=== PATIENT | female | born 1955 | race Caucasian/White ===

== ENCOUNTER 2019-11-23 10:21 | Outpatient (CLI) | payer MEDICARE, SELFPAY ==
--- NOTE | ~2019-11-23 | XR_ITS ---
XR chest 2V DATE: 11/23/2019 10:39 INDICATION: Cough TECHNIQUE: PA and lateral views COMPARISON: 05/16/2019 CT chest high resolution portable AP chest FINDINGS: Calcified bilateral breast implants are again noted. Normal heart size. Normal heart size. Aortic calcification and mild unfolding. There is interval new mild prominence of the pulmonary vasculature and fissures, suggesting mild demetrice estive change. No pulmonary consolidation, pleural effusion or pneumothorax. Surgical clips, right upper quadrant, consistent with cholecystectomy. Osteopenia. Degenerative spurring of the thoracic and lumbar spine. IMPRESSION: Mild congestive changes since 02/06/2019 Reviewed, dictated and finalized at location B. [employer] FORMER
== END 2019-11-23 10:22 | disposition home or self-care (01) ==
LOC: ANHIMG 10:23
PROVIDERS: PCP Family Medicine; Visit Provider Physician Assistant
DX: R05 Cough (principal)
CPT/HCPCS: 71046

== ENCOUNTER 2019-12-15 14:48 | Emergency (ER) | payer MEDICARE, SELFPAY ==
[2019-12-15 15:02] VITALS: BP 134/73; PULSE 56; RESP 19; TEMP 36.9; O2SAT 100
--- NOTE | 2019-12-15 15:16 | ED.GENADULT ---
HPI - General Adult General Chief complaint: Upper Respiratory Infection Stated complaint: runny nose/mucus in throat/pain in back Time Seen by Provider: 12/15/19 15:16 Source: patient and RN notes reviewed Mode of arrival: ambulatory Limitations: no limitations History of Present Illness HPI narrative: This is a 64 years old female presents to the office for an evaluation of sinus congestion for three weeks. Symptoms are worsening for the last week. Symptoms include sore throat, ear fullness, and cough. She saw her doctor about 3 weeks ago for cough who ordered a chest x-ray with unremarkable finding. She has been trying multiple [id number] cold and cough and sinus allergy medicine with no relief. She was a former smoker, quit about 4 years ago. Denies sick contact. Related Data Home Medications Medication Instructions Recorded Confirmed aspirin 81 mg tablet,delayed 81 mg PO DAILY 10/06/19 12/15/19 release budesonide-formoterol HFA 160 2 puff INHALATION Q12H 10/06/19 mcg-4.5 mcg/actuation aerosol inhaler flecainide 150 mg tablet 150 mg PO Q12H 10/06/19 12/15/19 fluticasone propionate 50 2 spray NASAL DAILY 10/06/19 mcg/actuation nasal spray,suspension furosemide 20 mg tablet 20 mg PO QAM 10/06/19 12/15/19 loratadine 10 mg tablet 10 mg PO DAILY 10/06/19 12/15/19 gabapentin 300 mg PO DIRECTED 12/15/19 12/15/19 metoprolol tartrate 25 mg PO DAILY 12/15/19 12/15/19 Allergies Allergy/AdvReac Type Severity Reaction Status Date / Time bupropion Allergy Intermediate Rash Verified 10/24/19 14:25 QUIN Inhibitors Allergy Unknown Unknown Verified 10/24/19 14:25 codeine Allergy Unknown Unknown Verified 10/24/19 14:25 latex Allergy Unknown Unknown Verified 10/24/19 14:25 propoxyphene Allergy Unknown Unknown Verified 10/24/19 14:25 Sulfa (Sulfonamide Allergy Unknown Unknown Verified 10/24/19 14:25 Antibiotics) warfarin Allergy Unknown Unknown Verified 10/24/19 14:25 hydrocodone AdvReac Unknown GI UPSET\ Verified 10/24/19 14:25 Review of Systems Review of Systems: Narrative: CONSTITUTIONAL: Denies fever. Reports feeling exhausted and tired ENT: Reports head congestion, ears clogged and sore throat CARDIOVASCULAR: Denies chest pain; but reports sore chest when she coughs RESPIRATORY: Denies dyspnea, wheezing. GASTROINTESTINAL: Denies abdominal pain, nausea, vomiting, diarrhea. SKIN: Denies rash MUSCULOSKELETAL: Denies acute back pain NEUROLOGIC: Denies lightheaded PMFSH Past Medical History Medical History Allergic rhinitis Anemia Asthma Cardiac arrhythmia COPD (chronic obstructive pulmonary disease) GERD (gastroesophageal reflux disease) Heart disease History of DVT (deep vein thrombosis) Hypertension Hypothyroidism Neuropathy LYLY (obstructive sleep apnea) Osteoporosis RLS (restless legs syndrome) Vascular disease Family History Family History Sibling Depression Asthma Hypertension Mother Diabetes mellitus Hypertension Asthma Cerebrovascular accident Family history of chronic obstructive pulmonary disease Family history of lung cancer Father Diabetes mellitus Social History Social History Smoking status: Former smoker Smoking end date: 10/18/14 Additional smoking assessment comments: quit 5 years ago Alcohol intake: current Additional living arrangements comments: [facility] Gender identity (if verbalized by the patient): Female Comments At time of signature, I agree with nursing past medical, surgical, social and family history. There is no relevant family history pertinent to the presenting complaint. Exam Narrative: Exam Narrative: GENERAL: This is a well-nourished, well-developed patient, in no apparent distress. EYES: Sclera clear/white. Vision is grossly intact. EARS: External
== END 2019-12-15 15:34 | disposition home or self-care (01) ==
PROVIDERS: Emergency Provider Nurse Practitioner; PCP Family Medicine
DX: J06.9 Acute upper respiratory infection, unspecified (principal); R05 Cough; Z87.891 Personal history of nicotine dependence; J45.909 Unspecified asthma, uncomplicated; J44.9 Chronic obstructive pulmonary disease, unspecified; K21.9 Gastro-esophageal reflux disease without esophagitis; Z86.718 Personal history of other venous thrombosis and embolism; I10 Essential (primary) hypertension; E03.9 Hypothyroidism, unspecified; G47.33 Obstructive sleep apnea (adult) (pediatric); M81.0 Age-related osteoporosis without current pathological fracture; G25.81 Restless legs syndrome; G62.9 Polyneuropathy, unspecified
CPT/HCPCS: 99213; G0463

== ENCOUNTER 2020-04-08 13:54 | Outpatient (CLI) | payer MEDICARE, SELFPAY ==
--- NOTE | ~2020-04-08 | CT_ITS ---
EXAMINATION: CT chest high resolution wo wa DATE: 04/08/2020 14:13 INDICATION: Interstitial lung disease TECHNIQUE: Computed tomography (CT) of the chest was performed without intravenous contrast. The dose -length product (DLP) was 525.50 mGy-cm. Automated exposure control and iterative reconstruction tech wriplque were employed. COMPARISON: 05/16/2019 FINDINGS: There is mild to moderate emphysema. There are unchanged subpleural reticular and groundgla ss opacities with a mid and lower lung zone predominance. There is no honeycombing. No pleural effusi on or pneumothorax is identified. No pathologically enlarged thoracic lymph nodes are identified. The heart size is normal. Calcified pulmonary nodules are consistent with old granulomatous disease. The gallbladder is surgically absent. Bilateral breast implants are noted. Again noted are partially deshaun ged changes of anterior fusion procedure in the lower cervical spine. There is moderate thoracic spon dylosis. IMPRESSION: 1. Chronic interstitial lung disease in a pattern of nonspecific interstitial pneumonia (NSIP) withou t significant change. Reviewed, dictated and finalized at location A. IMPRESSION: 1. Chronic interstitial lung disease in a pattern of nonspecific interstitial p neumonia (NSIP) without significant change.
== END 2020-04-08 13:55 | disposition home or self-care (01) ==
PROVIDERS: PCP Family Medicine; Visit Provider Nurse Practitioner Family
DX: J84.9 Interstitial pulmonary disease, unspecified (principal)
CPT/HCPCS: 71250

== ENCOUNTER 2020-07-28 08:06 | Outpatient (CLI) | payer MEDICARE, SELFPAY ==
--- NOTE | ~2020-07-28 | US_ITS ---
EXAMINATION: US carotid duplex BI DATE: 07/28/2020 10:07 INDICATION: Carotid bruit. Tremors. TECHNIQUE: Grayscale, color Doppler, and pulsed Doppler images of the cervical carotid arteries were obtained. The degree of vessel stenosis is placed in one of the following categories: normal, <50%, 5 0-69%, >=70% but less than near-occlusion, near-occlusion, or total occlusion. Note that percent sten osis relative to normal distal artery lumen diameter is indirectly measured from velocity measurement s as described by Antwan, et al. Radiology 2003; 229:340-346. Notes: Normal: Peak systolic velocity <125 centimeters/sec and no plaque <50%. Peak systolic velocity <125 ( EDV <40; ICA/CCA PSV ratio <2.0; used these factors only a tandem lesions or low cardiac output or co ntralateral disease) 50-69 %: PSV 125-230 (EDV 40-100; ratio 2-4) >= 70% but less than near occlusion: PSV greater than 230 (EDV > 100; ratio> 4.0) Near Occlusion: PSV that is variable; markedly narrowed lumen Occlusion: Absent flow on color/spectral Doppler and no lumen on julio scale. COMPARISON: None. FINDINGS: RIGHT: The right common carotid artery (CCA) peak systolic velocity (PSV) is 76 cm/s. The right internal car otid artery (ICA) PSV is 108 cm/s. The right ICA end-diastolic velocity (EDV) is 32 cm/s. The right I CA/CCA PSV ratio is 1.4. The external carotid artery (ECA) PSV is 59 cm/s. There is antegrade flow in the right vertebral artery. LEFT: The left CCA PSV is 92 cm/s. The left ICA PSV is 116 cm/s. The left ICA EDV is 39 cm/s. The left ICA/ CCA PSV ratio is 1.3. The ECA PSV is 64 cm/s. There is antegrade flow in the left vertebral artery. IMPRESSION: 1. Less than 50% stenosis in the right internal carotid artery by sonographic criteria. 2. Less than 50% stenosis in the left internal carotid artery by sonographic criteria. Reviewed, dictated and finalized at location A. IMPRESSION: 1. Less than 50% stenosis in the right internal carotid artery by sonographic kyra barraza. 2. Less than 50% stenosis in the left internal carotid artery by sonographic magnolia fleming.
--- NOTE | ~2020-07-28 | MR_ITS ---
EXAMINATION: MR brain/brain stem wo con DATE: 07/28/2020 09:33 INDICATION: Bilateral arm and leg pain. Tremors. TECHNIQUE: Magnetic resonance imaging (MRI) of the brain and brainstem was performed without intraven ous contrast. Sequences included sagittal and axial T1-weighted SE, axial diffusion-weighted FS SE, a xial T2*-weighted GRE, axial T2-weighted FLAIR Propeller, and axial T2-weighted Propeller. Apparent d iffusion coefficient (ADC) maps were created. COMPARISON: CT dated 02/06/2019. FINDINGS: Brain parenchymal volume is normal for age. No evidence for acute intracranial infarction o r hemorrhage. No ventriculomegaly or midline shift. Basilar cisterns are patent. Structures of the po sterior fossa including 7/8th cranial nerve complexes are normal. Orbits are symmetric without discon jugate gaze. There are scattered mild periventricular and subcortical white matter changes, most like ly related to small vessel ischemic disease (microangiopathy). Paranasal sinuses are unremarkable. IMPRESSION: 1. No acute intracranial abnormality. 2: Chronic age-related findings. Reviewed, dictated and finalized at location A.
== END 2020-07-28 08:07 | disposition home or self-care (01) ==
LOC: ANHIMG 08:11
PROVIDERS: PCP Family Medicine; Visit Provider Psychiatry & Neurology Neurology
DX: R25.1 Tremor, unspecified (principal); R09.89 Other specified symptoms and signs involving the circulatory and respiratory systems
CPT/HCPCS: 70551; 93880

== ENCOUNTER 2020-10-02 08:35 | Outpatient (CLI) | payer MEDICARE, SELFPAY ==
--- NOTE | 2020-10-02 12:00 | NEURO_ITS ---
Impression: # Complains of numbness of feet. # Normal nerve conduction study with symmetrical F-waves. # Symptomatology could be related to small fiber neuropathy. # Normal needle/EMG exam. # Clinical correlation recommended. Nerve Conduction Studies Anti Sensory Summary Table Stim Site NR Peak (ms) P-T Amp (?V) Site1 Site2 Delta-P (ms) Dist (cm) Daron (m/s) Left Sup Fibular Anti Sensory (Ant Lat Mall) 14 cm 3.2 6.3 14 cm Ant Lat Mall 3.2 16.0 50 Right Sup Fibular Anti Sensory (Ant Lat Mall) 14 cm 3.7 4.8 14 cm Ant Lat Mall 3.7 16.0 43 Left Sural Anti Sensory (Lat Mall) Calf 3.4 8.4 Calf Lat Mall 3.4 16.0 47 Right Sural Anti Sensory (Lat Mall) Calf 3.4 7.1 Calf Lat Mall 3.4 16.0 47 Motor Summary Table Stim Site NR Onset (ms) O-P Amp (mV) Site1 Site2 Delta-0 (ms) Dist (cm) Daron (m/s) Left Peroneal Motor (Vastus Med) Ankle 4.0 1.2 Popit Ankle 8.0 38.0 48 Popit 12.0 0.8 Right Peroneal Motor (Vastus Med) Ankle 3.8 1.4 Popit Ankle 7.5 36.0 48 Popit 11.3 2.2 Left Tibial Motor (Abd Graham Brev) Ankle 4.8 4.6 Knee Ankle 8.1 42.0 52 Knee 12.9 2.1 Right Tibial Motor (Abd Graham Brev) Ankle 4.2 8.6 Knee Ankle 8.9 40.0 45 Knee 13.1 5.4 F Wave Studies NR F-Lat (ms) L-R F-Lat (ms) Left Peroneal (Mrkrs) (EDB) 48.13 0.35 Right Peroneal (Mrkrs) (EDB) 48.48 0.35 Left Tibial (Mrkrs) (Abd Hallucis) 48.84 0.13 Right Tibial (Mrkrs) (Abd Hallucis) 48.71 0.13 EMG Side Muscle Nerve Root Ins Act Fibs Amp Dur Recrt Comment Right AntTibialis Dp Br Fibular L4-5 Nml Nml Nml Nml Nml Right Gastroc Tibial S1-2 Nml Nml Nml Nml Nml Right Fibularis Long Sup Br Fibular L5-S1 Nml Nml Nml Nml Nml Right Flex Dig Long Tibial L5-S2 Nml Nml Nml Nml Nml Right Ext Dig Brev Dp Br Fibular L5, S1 Nml Nml Nml Nml Nml Left AntTibialis Dp Br Fibular L4-5 Nml Nml Nml Nml Nml Left Gastroc Tibial S1-2 Nml Nml Nml Nml Nml Left Fibularis Long Sup Br Fibular L5-S1 Nml Nml Nml Nml Nml Left Flex Dig Long Tibial L5-S2 Nml Nml Nml Nml Nml Left Ext Dig Brev Dp Br Fibular L5, S1 Nml Nml Nml Nml Nml MTDD
== END 2020-10-02 08:36 | disposition home or self-care (01) ==
PROVIDERS: PCP Family Medicine; Visit Provider Psychiatry & Neurology Neurology
DX: G62.9 Polyneuropathy, unspecified (principal)
CPT/HCPCS: 95886; 95910

== ENCOUNTER 2020-11-11 10:06 | Outpatient (CLI) | payer MEDICARE, SELFPAY ==
[2020-11-11 11:00] VITALS: O2SAT 85
[2020-11-11 11:05] VITALS: O2SAT 90
[2020-11-11 11:07] VITALS: O2SAT 87
[2020-11-11 11:10] VITALS: O2SAT 91
[2020-11-11 11:15] VITALS: O2SAT 93
--- NOTE | 2020-11-11 11:47 | HOMEO2EVAL ---
Home Oxygen Evaluation RC: Home Oxygen (O2) Evaluation Start: 11/11/20 11:38 Freq: Status: Active Protocol: RPE Activity Type Activity Date Activity User E-Sign Co-Sign Detail Recorded Client Recorded Date Recorded By Document 11/11/20 11:00 [email or web address] [email or web address] 11/11/20 11:47 MEGA Document 11/11/20 11:05 [email or web address] [email or web address] 11/11/20 11:47 MEGA Document 11/11/20 11:07 [email or web address] [email or web address] 11/11/20 11:47 MEGA Document 11/11/20 11:10 [email or web address] [email or web address] 11/11/20 11:47 MEGA Document 11/11/20 11:15 [email or web address] [email or web address] 11/11/20 11:47 MEGA 11/11/20 11/11/20 11/11/20 11:00 11:05 11:07 Home O2 Evaluation Test Phase Resting Resting Exercise Oxygen Delivery Room Air Nasal Cannula Nasal Cannula Oxygen Flow Rate (L/min) 1 1 Pulse Oximetry (90-100 %) 85 L 90 87 L Ambulation Distance (feet) Treatment Charges O2 Evaluation 11/11/20 11/11/20 11:10 11:15 Home O2 Evaluation Test Phase Exercise Resting Oxygen Delivery Nasal Cannula Nasal Cannula Oxygen Flow Rate (L/min) 2 1 Pulse Oximetry (90-100 %) 91 93 Ambulation Distance (feet) 300 Treatment Charges
--- NOTE | 2020-11-14 14:38 | WPDPFTINT ---
PFT Interpretation PFT Interpretation: This PFT met all criteria for ATS standards and reproducibility FEV/FVC post bronchodilator 80% FEV1 69% FVC 63% or 1.94 liters FVC in April 2019 was 65% or 2.02 liters TLC 57% or 2.87 liters RV 50% RV/TLC 35% DLCO 26% when adjusted for alveolar volume but not adjusted for hemoglobin Flow volume loops showed a restrictive pattern Impression: A restrictive ventilatory defect is present with severely reduced diffusion capacity. Compared to April 2019 there has not been significant decline in FVC or lung volumes. This pattern is consistent with Interstitial Lung Disease. Clinical correlation is advised.
== END 2020-11-11 10:07 | disposition home or self-care (01) ==
PROVIDERS: PCP Family Medicine; Visit Provider Nurse Practitioner Family
DX: R06.02 Shortness of breath (principal); J84.9 Interstitial pulmonary disease, unspecified
CPT/HCPCS: 94060; 94618; 94726; 94729

== ENCOUNTER 2021-01-08 12:50 | Outpatient (CLI) | payer MEDICARE, SELFPAY ==
--- NOTE | ~2021-01-08 | CT_ITS ---
EXAMINATION: CT chest high resolution [facility] EXAM DATE: 01/08/2021 13:19 INDICATION: J84.9 - Interstitial pulmonary disease, unspecified. TECHNIQUE: Spiral CT of the chest without contrast. Axial, coronal and sagittal images were reviewe d. Coronal maximum intensity pixel images of chest reviewed. The dose-length product (DLP) for this examination was 453.72 mGy-cm. The exposure was tailored according to patient size (auto mA exposur e control), and iterative reconstruction (ASIR) was used as additional dose reduction technique. Comp arison is made to prior examination from 04/08/2020. FINDINGS: There is irregular septal thickening seen with peripheral predominance and areas of groundg lass opacity. Appearance is unchanged, consistent with Nonspecific Interstitial Pneumonitis (NSIP) pa ttern interstitial lung disease with many possible underlying etiologies including collagen vascular disease, medications/drugs, prior viral infection, hypersensitivity pneumonitis, idiopathic etiologie s. There is mild emphysema. There are several small right lung nodules, 3 mm or less unchanged, granulomas. Some other scattered calcified lung parenchymal granulomas. No evidence of acute airspace disease. There are no pleural or pericardial effusions. Tracheobronchial tree is patent. There is no mediastinal, hilar or axilla ry lymphadenopathy. There is no pneumothorax. Heart normal in size. There is mild coronary taylor rial calcification, arterial sclerosis. There are cholecystectomy clips. No osteoblastic or osteol ytic lesions identified. Moderate size thoracic endplate osteophytes. Lower cervical fusion hardware . Breast implants with capsular calcification, retraction. IMPRESSION: 1. Stable appearance to NSIP pattern interstitial lung disease. 2. Mild emphysema. Reviewed, dictated and finalized at location A.
== END 2021-01-08 12:51 | disposition home or self-care (01) ==
PROVIDERS: PCP Family Medicine; Visit Provider Internal Medicine Critical Care Medicine
DX: J84.9 Interstitial pulmonary disease, unspecified (principal); J43.9 Emphysema, unspecified
CPT/HCPCS: 71250

== ENCOUNTER 2021-03-05 16:07 | Emergency (ER) | payer MEDICARE, SELFPAY ==
--- NOTE | ~2021-03-05 | XR_ITS ---
XR shoulder LT min 2V DATE: 03/05/2021 17:12 INDICATION: Fall. Pain of upper left arm TECHNIQUE: 3 views COMPARISON: None FINDINGS: Diffuse osteopenia. There is a comminuted fracture of the proximal humerus including vertical fracture through the greate r tuberosity, comminuted fracture at the surgical neck and metaphysis with greater than 50% medial di splacement. Normal alignment at the acromioclavicular and glenohumeral joints. Status post anterior cervical spine fusion at C6-C7. Degenerative changes of the cervical and thoraci c spine IMPRESSION: Comminuted proximal left humeral fracture Reviewed, dictated and finalized at location B.
--- NOTE | ~2021-03-05 | XR_ITS ---
XR humerus LT DATE: 03/05/2021 17:11 INDICATION: Fall, upper arm pain TECHNIQUE: AP and lateral views COMPARISON: None FINDINGS: There is a comminuted fracture of the proximal humerus including vertical nondisplaced frac ture of the greater tuberosity and comminuted fracture at the surgical neck and metaphysis, with grea ter than 50% anteromedial displacement of the distal shaft fragment. Diffuse osteopenia. Normal alignment at the acromioclavicular,, glenohumeral and elbow joints. IMPRESSION: Comminuted proximal humeral fracture Reviewed, dictated and finalized at location B.
[2021-03-05 16:10] VITALS: BP 146/73; PULSE 59; RESP 18; TEMP 36.1; O2SAT 96
--- NOTE | 2021-03-05 16:28 | ED.UPPEXIN ---
HPI - Extremity Injury (Upper) General Chief Complaint: Extremity Injury, Upper <OZIEL hSelton - Last Filed: 03/05/21 20:15> Stated Complaint: shoulder injury <OZIEL Shelton - Last Filed: 03/05/21 20:15> Time Seen by Provider: 03/05/21 16:12 <OZIEL Shelton - Last Filed: 03/05/21 20:15> Source: patient <OZIEL Shelton - Last Filed: 03/05/21 20:15> Mode of arrival: ambulatory <OZIEL Shleton - Last Filed: 03/05/21 20:15> Limitations: no limitations <OZIEL Shelton - Last Filed: 03/05/21 20:15> History of Present Illness HPI narrative: Patient is a 65 year old female who presents with left upper extremity pain. She reports walking into garage and tripped and fell on concrete floor. She denies hitting head. She denies neck and back pain. She is not on anticoagulants. She reports pain with range of motion. Patient appears uncomfortable. She denies taking otc medications for pain prior to arrival. <OZIEL Shelton - Last Filed: 03/05/21 20:15> Related Data Home Medications: Home Medications Medication Instructions Recorded Confirmed aspirin 81 mg tablet,delayed 81 mg PO DAILY 10/06/19 10/01/20 release flecainide 150 mg tablet 150 mg PO Q12H 10/06/19 10/01/20 fluticasone propionate 50 2 spray NASAL DAILY 10/06/19 10/01/20 mcg/actuation nasal spray,suspension furosemide 20 mg tablet 20 mg PO QAM 10/06/19 10/01/20 gabapentin 300 mg PO DIRECTED 12/15/19 10/01/20 metoprolol tartrate 25 mg PO DAILY 12/15/19 10/01/20 polysorbate 80-glycerin 1 %-1 % drp OPHTHALMIC (EYE) 11/06/20 eye drops vit cap PO 11/06/20 C,E,zinc,Bi-wdjnv-6-lutein-zeaxanthin 250 mg-2.5 mg-0.5 mg capsule <OZIEL Shelton - Last Filed: 03/05/21 20:15> Allergies/Adverse Reactions: Allergies Allergy/AdvReac Type Severity Reaction Status Date / Time bupropion Allergy Intermediate Rash Verified 03/05/21 18:57 QUIN Inhibitors Allergy Unknown Unknown Verified 03/05/21 18:57 codeine Allergy Unknown Unknown Verified 03/05/21 18:57 latex Allergy Unknown Unknown Verified 03/05/21 18:57 propoxyphene Allergy Unknown Unknown Verified 03/05/21 18:57 Sulfa (Sulfonamide Allergy Unknown Unknown Verified 03/05/21 18:57 Antibiotics) warfarin Allergy Unknown Unknown Verified 03/05/21 18:57 hydrocodone AdvReac Unknown GI UPSET\ Verified 03/05/21 18:57 <OZIEL Shelton - Last Filed: 03/05/21 20:15> Review of Systems Review of Systems: Narrative: CONSTITUTIONAL: Denies fever, chills, or sweats. EYES: Denies visual changes, redness, or discharge. ENT: Denies rhinorrhea, congestion, sore throat, or otalgia. CARDIOVASCULAR: Denies chest pain, palpitations, or edema. RESPIRATORY: Denies cough or dyspnea. GASTROINTESTINAL: Denies abdominal pain, nausea, vomiting, or diarrhea. GENITOURINARY: Denies dysuria or hematuria. SKIN: Denies rash or itching. MUSCULOSKELETAL: Left shoulder and arm pain NEUROLOGIC: Denies headache, numbness, dizziness, or weakness. PSYCHIATRIC: Denies anxiety or depression. <OZIEL Shelton - Last Filed: 03/05/21 20:15> [facility] Past Medical History Medical History: Medical History Allergic rhinitis Anemia Asthma Cardiac arrhythmia COPD (chronic obstructive pulmonary disease) GERD (gastroesophageal reflux disease) Heart disease History of DVT (deep vein thrombosis) Hypertension Hypothyroidism Neuropathy LYLY (obstructive sleep apnea) Osteoporosis RLS (restless legs syndrome) Vascular disease <OZIEL Shelton - Last Filed: 03/05/21 20:15> Family History Family History: Family History Sibling Depression Asthma Hypertension Mother Diabetes mellitus Hypertension Asthma Cerebrovascular accident Family history of chronic obstructive pulmonary disease Family history of lung ca
[2021-03-05] MEDS: ONDANSETRON HCL ODT 4 MG TABLET PO (16:46)
[2021-03-05] MEDS: MORPHINE SULFATE INJ (*CRX) 10 MG/ML AMP 2 MG IM (16:57)
--- NOTE | 2021-03-05 19:04 | PC.NURSE ---
Report given to [place] PAT DARLING at this time is [id number]
[2021-03-05 19:21] VITALS: BP 141/74; PULSE 59; RESP 18; TEMP 36.8; O2SAT 97
--- NOTE | 2021-03-05 19:26 | PC.NURSE ---
Pt transferred with sling in place to left arm that patient wore from home. Stable on d/c
== END 2021-03-05 19:37 | disposition short-term general hospital (02) ==
PROVIDERS: Emergency Provider Nurse Practitioner; PCP Family Medicine
DX: S42.292A Other displaced fracture of upper end of left humerus, initial encounter for closed fracture (principal); W01.0XXA Fall on same level from slipping, tripping and stumbling without subsequent striking against object, initial encounter; J44.9 Chronic obstructive pulmonary disease, unspecified; K21.9 Gastro-esophageal reflux disease without esophagitis; Z86.718 Personal history of other venous thrombosis and embolism; I10 Essential (primary) hypertension; E03.9 Hypothyroidism, unspecified; G47.33 Obstructive sleep apnea (adult) (pediatric); M81.0 Age-related osteoporosis without current pathological fracture; G25.81 Restless legs syndrome; Z87.891 Personal history of nicotine dependence; Z79.82 Long term (current) use of aspirin
CPT/HCPCS: 73030; 73060; 96372; 99285; A9270; J2270

== ENCOUNTER 2021-12-24 09:58 | Outpatient (CLI) | payer MEDICARE, SELFPAY ==
--- NOTE | ~2021-12-24 | DEXA_ITS ---
Bone Density Report Name: OTILIO BENTLEY Age: 66 Sex: Female Ethnicity: White Date of : 1955 Indication: osteopenia; height loss; prior fracture; postmenopausal Referring Provider: Pranav Cohen Study: Bone densitometry was performed. Exam Date: December 24, 2021 Accession number: [id number] Bone Density: Region BMD T-score Z-score Classification AP Spine (L1-L4) 0.886 -1.5 0.4 Osteopenia Femoral Neck (Left) 0.651 -1.8 -0.2 Osteopenia Total Hip (Left) 0.926 -0.1 1.2 Normal Total Hip Bilateral Avg 0.905 -0.3 1.0 Normal Femoral Neck (Right) 0.766 -0.8 0.9 Normal Total Hip (Right) 0.882 -0.5 0.8 Normal World Health Organization criteria for BMD impression classify patients as: Normal (T-score at or above -1.0), Osteopenia (T-score between -1.0 and -2.5), or Osteoporosis (T-score at or below -2.5). 10-year Fracture Risk(1): Major Osteoporotic Fracture 15% Hip Fracture 2.0% Reported Risk Factors: [place] (), Neck BMD=0.651, BMI=33.3, previous fracture (1) FRAX(R) Version 3.08. Fracture probability calculated for an untreated patient. Fracture probability may be lower if the patient has received treatment. Previous Exams: Region Exam Age BMD T-score BMD Change BMD Change Date g/cm2 vs Baseline vs Previous AP Spine(L1-L4) 12/24/2021 66 0.886 -1.5 0.021(2.5%)# 0.021(2.5%)# 02/09/2012 56 0.864 -1.7 Total Hip(Left) 12/24/2021 66 0.926 -0.1 0.087(10.4%)# 0.087(10.4%)# 02/09/2012 56 0.838 -0.8 Total Hip(Right) 12/24/2021 66 0.882 -0.5 0.071(8.8%)# 0.071(8.8%)# 02/09/2012 56 0.811 -1.1 *Denotes significance at 95% confidence level, LSC for AP Spine = 0.022 g/cm2, LSC for Total Hip = 0.027 g/cm2 Clinical Information Provided by Patient: Has had a low trauma fracture Patient maximum height was 65.5 Menopause Age: 50 No regular weight bearing exercise Drinks caffeinated beverages Onset of menses at age 13 Number of children 3 Impression: The patient has low bone mass, based on the Left Femoral Neck T-score. The patient has an estimated ten-year risk of hip fracture of 2% and an estimated ten-year risk of major fracture of 15%, based on the WHO FRAX algorithm. The patient has risk factors, including: previous fracture. No significant bone loss was observed. Discussion: BONE DENSITY IS LOW AT ONE OR MORE SKELETAL SITES. This patient's lowest T-score is low at one or more skeletal sites. It meets the W
== END 2021-12-24 09:59 | disposition home or self-care (01) ==
LOC: ANHIMG 09:59
PROVIDERS: PCP Family Medicine; Visit Provider Family Medicine
DX: Z78.0 Asymptomatic menopausal state (principal); M85.88 Other specified disorders of bone density and structure, other site; M85.852 Other specified disorders of bone density and structure, left thigh
CPT/HCPCS: 77080

== ENCOUNTER 2022-01-23 13:38 | Outpatient (CLI) | payer MEDICARE, SELFPAY ==
--- NOTE | ~2022-01-23 | MM_ITS ---
EXAMINATION: MM scrn lala implant BI w catrachita HISTORY: Screening mammogram TECHNIQUE: Craniocaudal and mediolateral oblique 3-D tomosynthesis images with implant displacement a nd synthetic 2-D images were generated. Craniocaudal and mediolateral oblique views of the breasts wi thout implant displacement were obtained using full field digital mammography. CAD analysis was submi tted and interpreted. COMPARISON: Comparison to multiple prior studies sequentially, with oldest reviewed study dated 02/08. BREAST PARENCHYMAL COMPOSITION: Breast composed of scattered areas of fibroglandular density FINDINGS: There is no evidence of suspicious mass, calcification, or architectural distortion to sugg est malignancy in either breast. There has been no suspicious interval change. IMPRESSION: 1. No mammographic evidence of malignancy. 2. Recommend routine screening mammography in one year. BI-RADS Category 1: Negative Reviewed, dictated and finalized at location A.
== END 2022-01-23 13:39 | disposition home or self-care (01) ==
LOC: ANHIMG 13:40
PROVIDERS: PCP Family Medicine; Visit Provider Nurse Practitioner Family
DX: Z12.31 Encounter for screening mammogram for malignant neoplasm of breast (principal)
CPT/HCPCS: 77063; 77067

== ENCOUNTER 2022-05-26 14:46 | Outpatient (CLI) | payer MEDICARE, SELFPAY ==
--- NOTE | ~2022-05-26 | CT_ITS ---
EXAMINATION: CT abdomen pelvis w con DATE: 05/26/2022 15:25 INDICATION: Left lower quadrant abdominal pain, diarrhea. History of diverticulitis. TECHNIQUE: Computed tomography (CT) of the abdomen and pelvis was performed with 100 CC Omnipaque 350 intravenous contrast. Automated exposure control and iterative reconstruction technique were employe d. Exam dose: 784.27 mGy-cm total exam DLP. COMPARISON: 10/28/2016 CT abdomen pelvis FINDINGS: Status post bilateral augmentation mammoplasty with prominent peripheral calcification of b oth implants. There is predominantly peripheral and basilar prominent reticulation of the included lower lung field s, with bronchiectasis, stable chest taking usual interstitial pneumonia pulmonary fibrosis. Heart size is within normal limits. No pericardial or pleural effusion. Status post cholecystectomy. The liver, spleen, pancreas, adrenal glands are unremarkable. Several sm all cysts of the kidneys are noted. There is mild irregularity of the renal outlines which may be due to chronic pyelonephritis. No urinary tract calculus or obstruction is detected. The urinary bladder is unremarkable. There is atherosclerotic calcification of the abdominal aorta and at the origins of the renal arterie s. No abdominal aortic aneurysm. No intraperitoneal or retroperitoneal or pelvic mass lesion or adeno nilo or ascites. Uterus, adnexal areas and urinary bladder are unremarkable. Normal appendix. Minimal sigmoid diverticulosis. No CT evidence of diverticulitis. No bowel obstructi on. There is some liquid stool in the colon consistent with history of diarrhea. No bowel wall thicke gerardo, pneumatosis or intraperitoneal free air. Small fat-containing umbilical hernia. Diffuse idiopathic skeletal hyperostosis of the thoracic spine. There is degenerative change at the a pophyseal joints of the lumbar and lumbosacral spine. No suspicious osteolytic or osteoblastic lesion s are noted. Osteopenia. IMPRESSION: There is some liquid stool in the colon consistent with history of diarrhea. No bowel ob struction or intraperitoneal free air. Minimal colonic diverticulosis; no evidence of diverticulitis Normal appendix Status post cholecystectomy Reviewed, dictated and finalized at [facility]. Reviewed, dictated and finalized at location B. IMPRESSION: There is some liquid stool in the colon consistent with history of diarrhea. No bowel obstruction or intraperitoneal free air. Minimal colonic diverticulosis; no evidence of diverticulitis Normal appendix Status post cholecystectomy
[2022-05-26 15:21] LABS: Estimated Glomerular Filt Rate > 60
== END 2022-05-26 14:47 | disposition home or self-care (01) ==
PROVIDERS: PCP Family Medicine; Visit Provider Nurse Practitioner Family
DX: R10.32 Left lower quadrant pain (principal); R19.7 Diarrhea, unspecified; Z87.19 Personal history of other diseases of the digestive system; K57.30 Diverticulosis of large intestine without perforation or abscess without bleeding; Z90.49 Acquired absence of other specified parts of digestive tract
CPT/HCPCS: 74177; Q9967

== ENCOUNTER 2022-08-31 14:03 | Observation (INO) | payer MEDICARE, SELFPAY ==
[2022-08-31] VITALS (7 sets, daily range): BP systolic 80–123; BP diastolic 58–64; PULSE 56–92; RESP 15–21; TEMP 36.4–36.6; O2SAT 94–100; BMI 28.6
--- NOTE | ~2022-08-31 | XR_ITS ---
XR chest 1V portable DATE: 08/31/2022 14:47 INDICATION: Cough TECHNIQUE: Portable AP chest on 08/31/2022 at 1444 hours COMPARISON: 01/04/2021 CT chest high resolution scan PA and lateral chest FINDINGS: Chronic increased interstitial lung markings are noted suggesting chronic interstitial fibr otic changes. No pulmonary consolidation, pleural effusion or pneumothorax. Heart size appears within normal limits. Aortic arch calcification. Diffuse osteopenia. Old healed fracture deformity of the left humeral surgical neck. Degenerative spu rring of the thoracic spine. Status post anterior lower cervical spine surgical fusion. Calcified bilateral breast implants. IMPRESSION: Chronic diffuse pulmonary interstitial prominence suggesting chronic interstitial fibroti c changes; no apparent pulmonary consolidation Reviewed, dictated and finalized at location A. IER AND SALESPERSON IMPRESSION: Chronic diffuse pulmonary interstitial prominence suggesting chroni c interstitial fibrotic changes; no apparent pulmonary consolidation
--- NOTE | 2022-08-31 14:31 | ECG_ITS ---
Measurements Intervals [place] Rate: 58 P: 13 [place]: 141 QRS: -19 QRSD: 126 T: 14 QT: 474 QTc: 467 Interpretive Statements SINUS BRADYCARDIA RIGHT BUNDLE BRANCH BLOCK BASELINE ARTIFACT- I, II, III, AVR, AVL, AVF, V1-V6 ABNORMAL ECG COMPARED TO ECG 02/07/2019 00:02:18 SINUS BRADYCARDIA NOW PRESENT Electronically Signed On 08-31-2022 14:47:04 OUTDOOR STUDIES PROFESSOR by Arash Thomson D.O.
[2022-08-31] MEDS: ALBUTEROL SULFATE NEB 2.5 MG/3 ML INH INHALATION (14:51)
[2022-08-31] MEDS: SODIUM CHLORIDE 0.9% IV 1,000 ML 999 ML IV CONT (15:27)
[2022-08-31 15:28] LABS: Basophils Percent Auto 0.4 % (0.2-1.2); Eosinophils Absolute Auto 0.4 K/mm3 (0-0.3); Eosinophils Percent Auto 4.5 % (0-4.4); Hematocrit 35.8 % (37.0-47.0); Hemoglobin 11.4 g/dL (12.0-15.0); Immature Granulocyte Absolute 0.03 K/mm3 (0.00-0.031); Immature Granulocyte Percent A 0.4 % (0-0.5); Lymphocytes Absolute Auto 1.58 K/mm3 (0.9-3.2); Lymphocytes Percent Auto 19.1 % (18.3-44.2); Mean Corpuscular HGB Conc 31.8 g/dl (32-36); Mean Corpuscular Hemoglobin 28.6 pg (26-34); Mean Corpuscular Volume 89.9 fl (80-100); Mean Platelet Volume 10.5 fl (7.4-10.4); Monocytes Absolute Auto 0.6 K/mm3 (0.1-0.6); Monocytes Percent Auto 6.9 % (2.6-8.5); Neutrophils Absolute Auto 5.7 K/mm3 (1.3-6.7); Neutrophils Percent Auto 68.7 % (45.5-73.1); Platelet Count Result 409 k/mm3 (150-375); Red Blood Count 3.98 M/mm3 (4.2-5.4); Red Cell Distribution Width 12.6 % (11.5-14.5); White Blood Count 8.3 K/mm3 (4.5-10.0)
[2022-08-31 15:38] LABS: Influenza A QL RT-PCR Negative (Negative); Influenza B QL RT-PCR Negative (Negative); RSV RNA, RT-PCR Negative (Negative); SARS-CoV-2 RNA PCR Positive
[2022-08-31 15:39] LABS: INR 1.2; Lactic Acid Reflex 1.1 mmol/L (0.7-2.0); Partial Thromboplastin Time 31.5 SECONDS (22.3-36.8); Prothrombin Time 14.9 Seconds (11.1-14.7)
--- NOTE | 2022-08-31 15:40 | ED.WEAKNESS ---
HPI - Weakness General Chief complaint: Weakness Stated complaint: productive cough Time Seen by Provider: 08/31/22 14:24 History of Present Illness HPI Narrative: Pt presents with generalized weakness and cough for two weeks. Pt has had runny nose as well and has discomfort in right mid back. Pt had fever several days ago but is resolved now. Pt went to see [employer] engineer today and had SBP in 80's so sent to ER. Pt denies abdominal pain. Related Data Home Medications Medication Instructions Recorded Confirmed aspirin 81 mg tablet,delayed 81 mg PO DAILY 10/06/19 08/31/22 release fluticasone propionate 50 2 spray intranasal DAILY PRN 10/06/19 08/31/22 mcg/actuation nasal Allergies spray,suspension furosemide 20 mg tablet 20 mg PO QAM 10/06/19 08/31/22 gabapentin 300 mg capsule 300 mg PO BID 12/15/19 08/31/22 metoprolol tartrate 25 mg tablet 25 mg PO DAILY 12/15/19 08/31/22 vit 1 cap PO DAILY 11/06/20 08/31/22 C,E,zinc,Ra-ozbds-8-lutein-zeaxanthin 250 mg-2.5 mg-0.5 mg capsule mycophenolate mofetil 500 mg tablet 1,500 mg PO Q12H 01/13/22 08/31/22 flecainide 150 mg tablet 150 mg PO BID 08/31/22 08/31/22 Allergies Allergy/AdvReac Type Severity Reaction Status Date / Time bupropion Allergy Intermediate Rash Verified 08/31/22 13:01 QUIN Inhibitors Allergy Unknown Unknown Verified 08/31/22 13:01 codeine Allergy Unknown Unknown Verified 08/31/22 13:01 latex Allergy Unknown Unknown Verified 08/31/22 13:01 propoxyphene Allergy Unknown Unknown Verified 08/31/22 13:01 Sulfa (Sulfonamide Allergy Unknown Unknown Verified 08/31/22 13:01 Antibiotics) warfarin Allergy Unknown Unknown Verified 08/31/22 13:01 hydrocodone AdvReac Unknown GI UPSET\ Verified 08/31/22 13:01 Review of Systems Review of Systems: All systems reviewed & are unremarkable except as noted in HPI and below PMFSH Past Medical History Medical History (Updated 08/31/22 @ 21:11 by Kati Agee DO) Allergic rhinitis Anemia Asthma Cardiac arrhythmia Chronic respiratory failure with hypoxia, on home O2 therapy COPD (chronic obstructive pulmonary disease) Depression Diarrhea GERD (gastroesophageal reflux disease) Heart failure with preserved ejection fraction History of DVT (deep vein thrombosis) At 30 years old History of tobacco abuse Hypertension Hypothyroidism Secondary to treatment for Graves disease ILD (interstitial lung disease) On chronic immunosuppression with CellCept 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 but does not fit criteria for CREST Neuropathy Nonspecific interstitial pneumonia LYLY (obstructive sleep apnea) On CPAP of 9 with 3 L oxygen bleed in Osteoporosis WITH LEFT SHOULDER FRACTURE APRIL 2021 RLS (restless legs syndrome) SLE (systemic lupus erythematosus) Vascular disease Surgical History Surgical History (Updated 08/31/22 @ 21:08 by Kati Agee DO) History of cervical discectomy C4-C5 History of meniscectomy of right knee Hx laparoscopic cholecystectomy Family History Family History Sibling Depression Asthma Hypertension Mother Diabetes mellitus Hypertension Asthma Cerebrovascular accident Family history of chronic obstructive pulmonary disease Family history of lung cancer Father Diabetes mellitus Social History Social History Social History: Smoking packs per day: 1 Smoking cigarettes per day: 20.0 Years smoked: 25 Smoking pack-years: 25.00 Smoking status: Never smoker Second hand tobacco smoke exposure: Yes Additional smoking assessment comments: quit 5 years ago Alcohol intake: never Alcohol use details: occasional Substance use: never Substance use type: does not use Lack of Transportation: No Lack of Food: Never True Current Housing: I Have Housing Concerned About Future Housing: No Difficulty Pay
[2022-08-31 15:44] LABS: Alanine Aminotransferase 25 U/L (6-35); Albumin Level 4.2 g/dL (3.5-5.1); Alkaline Phosphatase 203 U/L (38-126); Anion Gap 16 mmol/L (8-16); Aspartate Amino Transferase 43 U/L (14-36); Bilirubin,Total 0.5 mg/dL (0.2-1.3); Blood Urea Nitrogen 27 mg/dL (7-17); CRP 2.1 mg/dL (<1.0); Calcium 8.8 mg/dL (8.4-10.2); Carbon Dioxide 27 mmol/L (22-30); Chloride 98 mmol/L (98-107); Estimated CRCL calculation 50 ml/min; Estimated Glomerular Filt Rate 55; Glucose 89 mg/dL (65-110); Potassium 3.3 mmol/L (3.4-5.0); Sodium 141 mmol/L (137-145)
[2022-08-31 18:08] LABS: Appearance Urine Clear (Clear); Bilirubin Urine Negative (Negative); Blood Urine Negative (Negative); Color Urine Yellow (Yellow); Glucose Urine UA Negative (Negative); Ketones Urine Negative (Negative); Leukocyte Esterase Ur Trace LEU/UL (Negative); Nitrate Urine Negative (Negative); Protein Urine Negative (Negative); Urobilinogen Urine 0.2 mg/dL (<2.0); pH Urine 5.5 (5.0-9.0)
[2022-08-31 18:17] LABS: Bacteria Urine Trace /hpf; Hyaline Casts Urine 30-49 /lpf; Mucus Urine Rare /lpf; RBC Urine 0-2 /hpf (0-2); Squamous Epithelial Cell Urine Rare /hpf (Few); WBC Urine 0-3 /hpf
[2022-08-31 18:19] LABS: Add Urine Microscopic? YES
[2022-08-31] MEDS: SODIUM CHLORIDE 0.9% IV 1,000 ML 125 ML IV CONT (18:47)
--- NOTE | 2022-08-31 20:55 | PM.IMHP ---
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 The patient had come to the trailer driver's office for routine visit but while she was there she reported having a cough for approximately 2.5 weeks. She reports that over the last week or so her sputum production has changed from clear to light yellow and now over the last 2 days she has been coughing up brown sputum. She has had a associated nasal congestion sinus pressure and rhinorrhea. His at some mild headache and that her years feel full. She had a fever about a week ago but fever has since resolved. She reports that multiple people in her family were ill with respiratory symptoms. Her great granddaughter having RSV several weeks ago. Everyone has gotten better except for the patient and her . She reports that she has been coughing so much that she has been getting some lightheadedness. She reports that her chest feels tight. She has also been feeling generally fatigued and weak. She does not feel well. She denies any nausea vomiting or changes in appetite. She denies any chest pain. She has been slightly more short of breath. She is on chronic home O2 of 2 L at rest but does not always use it when she is at rest and 3-4 L of oxygen with activity. She reports that since she was started on CellCept last year her lung symptoms had improved. Her interstitial lung disease is managed through [facility]. She does have obstructive sleep apnea and has been compliant with her treatments. Her obstructive sleep apnea is been managed by Dr. Cole. At her visit with Dr. Harrington the patient was found to be hypotensive with blood pressures of 80/50. Patient's blood pressures remained in this range when she arrived to the ER. In the ER she received 1 L of isotonic fluids with resolution of hypotension. Review of Systems Review of Systems: 12 systems were reviewed with pertinent positives and negatives per HPI. Except as documented in the HPI, all other systems were reviewed and are negative. [facility] Past Medical History Medical History (Updated 09/01/22 @ 06:50 by Kati Agee DO) Allergic rhinitis Anemia Asthma Chronic respiratory failure with hypoxia, on home O2 therapy COPD (chronic obstructive pulmonary disease) Depression Diarrhea Fibromyalgia GERD (gastroesophageal reflux disease) Heart failure with preserved ejection fraction History of DVT (deep vein thrombosis) At 30 years old History of tobacco abuse Hypertension Hypothyroidism Secondary to treatment for Graves disease ILD (interstitial lung disease) (~2008) On chronic immunosuppression with CellCept 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 but does not fit criteria for CREST Neuropathy Nonspecific interstitial pneumonia LYLY (obstructive sleep apnea) On CPAP of 9 with 3 L oxygen bleed in Osteoporosis With comminuted proximal left humeral fracture February 2021 Paroxysmal A-fib With single occurrence following hospitalization for sepsis/in a RLS (restless legs syndrome) SLE (systemic lupus erythematosus) Vascular disease Surgical History Surgical History (Updated 08/31/22 @ 21:08 by Kati Agee DO) History of cervical discectomy C4-C5 History of meniscectomy of right knee Hx laparoscopic cholecystectomy Family History Family History Sibling Depression Asthma Hypertension Mother Diabetes mellitus Hypertension Asthma Cerebrovascular accident Family history of chronic obstructive pulmonary disease Family history of lung cancer Father Diabetes geovany
[2022-08-31] MEDS: DULoxetine HCL 30 MG CAPSULE.DR PO (21:14)
[2022-08-31] MEDS: POTASSIUM CHLORIDE 20 MEQ TABLET 40 MEQ PO (21:15)
[2022-09-01] VITALS (9 sets, daily range): BP systolic 115–140; BP diastolic 49–73; PULSE 60–63; RESP 18; TEMP 36.6; O2SAT 92–96
[2022-09-01] MEDS: SODIUM CHLORIDE 0.9% IV 1,000 ML 125 ML IV CONT (04:48)
[2022-09-01] MEDS: LEVOTHYROXINE SODIUM 25 MCG TABLET PO (05:51)
[2022-09-01 06:02] LABS: Alanine Aminotransferase 22 U/L (6-35); Albumin Level 3.3 g/dL (3.5-5.1); Alkaline Phosphatase 173 U/L (38-126); Anion Gap 11 mmol/L (8-16); Aspartate Amino Transferase 31 U/L (14-36); Bilirubin,Total 0.3 mg/dL (0.2-1.3); Blood Urea Nitrogen 21 mg/dL (7-17); CRP 1.9 mg/dL (<1.0); Carbon Dioxide 26 mmol/L (22-30); Chloride 107 mmol/L (98-107); Estimated CRCL calculation 61 ml/min; Estimated Glomerular Filt Rate > 60; Glucose 97 mg/dL (65-110); Lactate Dehydrogenase 170 U/L (120-246); Magnesium 1.7 mg/dL (1.6-2.3); Potassium 3.4 mmol/L (3.4-5.0); Sodium 144 mmol/L (137-145)
[2022-09-01 06:22] LABS: Basophils Percent Auto 0.3 % (0.2-1.2); Eosinophils Absolute Auto 0.5 K/mm3 (0-0.3); Eosinophils Percent Auto 7.6 % (0-4.4); Hematocrit 32.4 % (37.0-47.0); Hemoglobin 10.1 g/dL (12.0-15.0); Immature Granulocyte Absolute 0.01 K/mm3 (0.00-0.031); Immature Granulocyte Percent A 0.2 % (0-0.5); Lymphocytes Absolute Auto 2.13 K/mm3 (0.9-3.2); Mean Corpuscular HGB Conc 31.2 g/dl (32-36); Mean Corpuscular Hemoglobin 28.6 pg (26-34); Mean Corpuscular Volume 91.8 fl (80-100); Mean Platelet Volume 10.7 fl (7.4-10.4); Monocytes Absolute Auto 0.5 K/mm3 (0.1-0.6); Monocytes Percent Auto 8.2 % (2.6-8.5); Neutrophils Percent Auto 48.7 % (45.5-73.1); Platelet Count Result 330 k/mm3 (150-375); Red Blood Count 3.53 M/mm3 (4.2-5.4); Red Cell Distribution Width 12.7 % (11.5-14.5); White Blood Count 6.1 K/mm3 (4.5-10.0)
[2022-09-01] MEDS: MAGNESIUM SULF 2 GM/WATER 50ML 2 GM/50 ML BAG IVPB (08:31)
[2022-09-01] MEDS: ALBUTEROL SULFATE (*SP) INHALER 4 PUFF INHALATION (09:29)
[2022-09-01] MEDS: UMECLIDINIUM BROMIDE 62.5 MCG ELLIPTA 1 PUFF INHALATION (09:30)
--- NOTE | 2022-09-01 10:22 | PM.DS ---
DS: Admitting Diagnosis Discharge Date 09/01/22 1015 Admitting Diagnosis Hypotension, covid, pneumonia DS: Discharge Diagnosis Discharge Diagnosis (1) COVID: Code(s): U07.1 - COVID-19 Status: Acute Assessment and Plan: The patient is stable on room air currently and has not had to increase her home oxygen requirement. She is 2 weeks out from symptom onset but is having increased sputum production suggested possible secondary infection. Patient has been started on empiric antibiotic therapy with Rocephin and azithromycin. CellCept has been held. this appears to be a past infection however testing positive on the probably has acute response to other illnesses chest x-ray does not indicate any COVID findings respiratory status stable (2) Acute hypotension: Code(s): I95.9 - Hypotension, unspecified Status: Acute Assessment and Plan: Resolved with IV fluid hydration. Will hold patient's home antihypertensive and diuretic therapy. Will check orthostatic vital signs in a.m.. Will give brief IV fluids but will stop at 07:00. Patient has been instructed to drink plenty of fluids. orthostatic blood pressures do not endorse hypotension at this time resolved and antihypertensives resumed (3) ILD (interstitial lung disease): Onset Date: ~2008 Code(s): J84.9 - Interstitial pulmonary disease, unspecified Status: Acute Assessment and Plan: CellCept on hold given possible underlying infection. according to the chest x-ray seems to be advancing chronic condition (4) Chronic respiratory failure with hypoxia, on home O2 therapy: Code(s): J96.11 - Chronic respiratory failure with hypoxia; Z99.81 - Dependence on supplemental oxygen Status: Acute Assessment and Plan: wean to room air at this time Continue supplemental home O2. patient instructed to check her oxygen level at home which she states she does daily and education given if return is needed (5) Hypokalemia: Code(s): E87.6 - Hypokalemia Status: Acute Assessment and Plan: current potassium 3.4 40 mEq potassium chloride given orally. Repeat BMP in a.m.. (6) Community acquired pneumonia: Code(s): J18.9 - Pneumonia, unspecified organism Status: Acute Assessment and Plan: Chest x-ray indicates chronic increased lung markings suggesting interstitial fibrotic changes WBCs normal at 6.1 responded well to antibiotic therapy currently on room air sputum and cough is back to patient's baseline supplemental oxygen weaned to room air, satting roughly 94-96% change ceftriaxone and azithromycin to cefdinir and p.o. azithromycin patient will need to follow up with primary in 1 weeks (7) COPD (chronic obstructive pulmonary disease): Code(s): J44.9 - Chronic obstructive pulmonary disease, unspecified Status: Acute Assessment and Plan: changes in sputum production noted however no notation of changes of shortness of breath or wheezes does not appear to be in acute exacerbation neb treatments ordered patient will continue her home therapy stable at this time Plan The patient is relatively stable. Hopefully with IV fluid hydration her blood pressures will remain stable and she could possibly be discharge in a.m.. She is eager to be discharged home. 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 Upon arrival to the ED patient was noted to have a blood pressure of 80/40. patient was given IV hydration. Blood pressure had resolved and was remaining in the 100s systolic. Patient was also noted to have an increase in sputum and sputum changes which
[2022-09-01] MEDS: DULoxetine HCL 30 MG CAPSULE.DR PO (10:44)
[2022-09-01] MEDS: ASPIRIN 81 MG ENTERIC TABLET PO (10:45)
[2022-09-01] MEDS: ENOXAPARIN 40 MG/0.4 ML SYRINGE SUB-Q (10:45)
[2022-09-01] MEDS: IRBESARTAN 150 MG TABLET 300 MG PO (10:45)
[2022-09-01] MEDS: METOPROLOL TARTRATE 25 MG TABLET PO (10:47)
[2022-09-01] MEDS: PANTOPRAZOLE 40 MG TABLET PO (10:47)
[2022-09-01] MEDS: MONTELUKAST SODIUM 10 MG TABLET PO (10:47)
[2022-09-01] MEDS: FLECAINIDE ACETATE 50 MG TABLET 150 MG PO (10:48)
== END 2022-09-01 11:35 | disposition home or self-care (01) ==
LOC: ANHED 16:27 → ANH2MED 09-01 10:47
PROVIDERS: Admitting Provider Internal Medicine; Emergency Provider Emergency Medicine; PCP Family Medicine; Visit Provider Student in an Organized Health Care Education/Training Program
DX: U07.1 COVID-19 (principal); I95.9 Hypotension, unspecified; R53.1 Weakness; E87.6 Hypokalemia; J96.11 Chronic respiratory failure with hypoxia; Z99.81 Dependence on supplemental oxygen; J44.9 Chronic obstructive pulmonary disease, unspecified; I11.0 Hypertensive heart disease with heart failure; I50.9 Heart failure, unspecified; J84.9 Interstitial pulmonary disease, unspecified; M32.9 Systemic lupus erythematosus, unspecified; G25.81 Restless legs syndrome; M81.0 Age-related osteoporosis without current pathological fracture; M35.1 Other overlap syndromes; E03.9 Hypothyroidism, unspecified; G62.9 Polyneuropathy, unspecified; G47.33 Obstructive sleep apnea (adult) (pediatric); I99.9 Unspecified disorder of circulatory system; Z86.718 Personal history of other venous thrombosis and embolism; Z87.891 Personal history of nicotine dependence; Z79.82 Long term (current) use of aspirin
CPT/HCPCS: 36415; 71045; 80053; 81001; 82728; 83605; 83615; 83735; 85025; 85610; 85730; 86140; 87040; 87637; 93005; 94640; 96361; 96365; 96372; 96375; 96376; 99285; A9270; G0378; J0456; J0696; J1650; J3475; J7030

== ENCOUNTER 2023-02-26 14:35 | Outpatient (CLI) | payer MEDICARE, SELFPAY ==
--- NOTE | 2023-02-26 | ECHO_ITS ---
Patient Info Name: Precious Grant Age: 67 years : 1955 Gender: Female Ht: 65 in Wt: 183 lbs BSA: 1.98 m2 HR: 68 bpm BP: 133 / 74 mmHg Technical Quality: Fair Exam Date: 02/26/2023 3:10 PM Exam Location: [facility] Patient Status: Outpatient Admit Date: 02/26/2023 Staff Ordering Physician: Beth Low MD Onion Topper: Mya Wu RDCS Attending Provider: Beth Low MD Referring Physician: Maranda BERNSTEIN; Exam Type: CA echo doppler color flow Study Info Indications - CHRONIC HYPOXEMIC RESP FAILURE Complete two-dimensional, color flow and Doppler transthoracic echocardiogram is performed. Summary 1. Complete two-dimensional, color flow and Doppler transthoracic echocardiogram is performed. 2. Left ventricular chamber dimension is normal. 3. Left ventricular systolic function is normal, estimated at 60-65%. 4. The left ventricular diastolic function is normal. 5. E/e' 9 is minimally elevated. 6. There is trace mitral valve regurgitation. 7. There is mild tricuspid valve regurgitation. 8. Mild pulmonary hypertension, estimated pulmonary arterial systolic pressure is 42 mmHg. 9. There is trace pulmonic regurgitation. Left Ventricle E/e' 9 is minimally elevated. Left ventricular chamber dimension is normal. Left ventricular systolic function is normal, estimated at 60-65%. The left ventricular diastolic function is normal. Right Ventricle Right ventricular chamber dimension is normal. Right ventricular systolic function is normal. Left Atria Left atrial chamber dimension is normal. Right Atria Right atrial chamber dimension is normal. Aortic Valve The aortic valve is trileaflet. There is no aortic valve stenosis. There is no aortic valve regurgitation. Pulmonic Valve There is trace pulmonic regurgitation. Mitral Valve There is no mitral valve stenosis. There is trace mitral valve regurgitation. Tricuspid Valve There is mild tricuspid valve regurgitation. Mild pulmonary hypertension, estimated pulmonary arterial systolic pressure is 42 mmHg. Pericardium/Pleural There is no pericardial effusion. Inferior Vena Cava Normal inferior vena cava with >50% collapse upon inspiration consistent with normal right atrial pressure, 5 mmHg. Aorta The aortic root size at the sinus of Valsalva is normal. Left Ventricular Outflow Tract Name Value Normal LVOT 2D LVOT Diameter 2.0 cm LVOT Doppler LVOT Peak Gradient 6 mmHg LVOT Mean Gradient 3 mmHg LVOT VTI 28 cm LVOT VTI/AV VTI Ratio 0.8 LVOT Stroke Volume 88 ml LVOT CO 15.7 l/min LVOT CI 8.0 l/min/m2 Pulmonic Valve Name Value Normal RVOT Doppler RVOT Peak Gradient 2 mmHg PV Doppler
== END 2023-02-26 14:36 | disposition home or self-care (01) ==
PROVIDERS: PCP Family Medicine
DX: J84.9 Interstitial pulmonary disease, unspecified (principal); J96.11 Chronic respiratory failure with hypoxia; I08.3 Combined rheumatic disorders of mitral, aortic and tricuspid valves
CPT/HCPCS: 93306

== ENCOUNTER 2023-04-26 07:27 | Outpatient (CLI) | payer MEDICARE, SELFPAY ==
--- NOTE | ~2023-04-26 | MM_ITS ---
EXAMINATION: MM scrn lala implant BI w catrachita HISTORY: Screening mammogram TECHNIQUE: Craniocaudal and mediolateral oblique 3-D tomosynthesis images with implant displacement a nd synthetic 2-D images were generated. Craniocaudal and mediolateral oblique views of the breasts wi thout implant displacement were obtained using full field digital mammography. CAD analysis was submi tted and interpreted. COMPARISON: January 23, 2022 bilateral implant screening mammogram 06/08/2018 bilateral diagnostic implant mammogram 09/06/2017 bilateral implant screening mammogram BREAST PARENCHYMAL COMPOSITION: There are scattered areas of fibroglandular density. FINDINGS: Status post bilateral augmentation mammoplasty. Numerous scattered bilateral benign calcified microhematomas. New circumscribed 3 mm mass in the posterior outer right breast on implant displaced CC view. Diagnos tic right mammogram and right breast ultrasound examination are recommended. Otherwise there is no evidence of suspicious mass, calcification, or architectural distortion to sug gest malignancy in either breast. There has been no other suspicious interval change. IMPRESSION: 1. New 3 mm mass in the posterior outer right breast on implant displaced CC view; 2. Diagnostic right mammogram and right breast ultrasound examination are recommended BI-RADS Category 0: Incomplete: Needs additional imaging evaluation. Reviewed, dictated and finalized at location A. IMPRESSION: 1. New 3 mm mass in the posterior outer right breast on implant displaced CC vi ew; 2. Diagnostic right mammogram and right breast ultrasound examination are recom mended BI-RADS Category 0: Incomplete: Needs additional imaging evaluation.
== END 2023-04-26 07:28 | disposition home or self-care (01) ==
LOC: ANHIMG 07:30
PROVIDERS: PCP Family Medicine; Visit Provider Family Medicine
DX: Z12.31 Encounter for screening mammogram for malignant neoplasm of breast (principal); R92.8 Other abnormal and inconclusive findings on diagnostic imaging of breast
CPT/HCPCS: 77063; 77067

== ENCOUNTER 2023-05-27 12:08 | Outpatient (CLI) | payer MEDICARE, SELFPAY ==
--- NOTE | ~2023-05-27 | MMUS_ITS ---
EXAMINATION: MM diagnostic lala RT w catrachita, US breast RT limited HISTORY: Right breast mass on screening mammogram TECHNIQUE: Additional 3-D tomosynthesis images of the right breast were performed and synthetic 2-D i mages were generated. CAD analysis was submitted and interpreted. High resolution limited right breas t ultrasound was performed. COMPARISON: 04/26/2023, 01/23/2022, 06/08/2018 FINDINGS: MAMMOGRAPHIC FINDINGS: There is a 3 mm round, circumscribed, equal density mass in the middle third of the outer breast at t he 9:00 location 8 cm from the nipple. No suspicious calcification or architectural distortion are id entified. ULTRASOUND: There is a 3 mm round, circumscribed, hypoechoic mass with no posterior features or internal vascular ity at the 10:00 location, 4 cm from the nipple corresponding to the mammographic finding in question . IMPRESSION: 1. Probably benign right breast mass. 2. Recommend 6 month follow-up right diagnostic mammogram and ultrasound. BI-RADS category 3, probably benign findings. Reviewed, dictated and finalized at location A. IMPRESSION: 1. Probably benign right breast mass. 2. Recommend 6 month follow-up right diagnostic mammogram and ultrasound. BI-RADS category 3, probably benign findings.
== END 2023-05-27 12:09 | disposition home or self-care (01) ==
PROVIDERS: PCP Family Medicine; Visit Provider Physician Assistant
DX: R92.8 Other abnormal and inconclusive findings on diagnostic imaging of breast (principal)
CPT/HCPCS: 76642; 77061; 77065; G0279

== ENCOUNTER 2023-05-28 12:47 | Outpatient (CLI) | payer MEDICARE, SELFPAY | END 2023-05-28 12:48 | disposition home or self-care (01) | LOC: ANHAUDASC 13:08 | PROVIDERS: PCP Family Medicine; Visit Provider Otolaryngology | DX: H90.3 Sensorineural hearing loss, bilateral (principal); H69.90 Unspecified Eustachian tube disorder, unspecified ear; J32.0 Chronic maxillary sinusitis; J30.2 Other seasonal allergic rhinitis | CPT/HCPCS: 92557; 92567 ==

== ENCOUNTER 2023-10-21 14:07 | Outpatient (CLI) | payer MEDICARE, SELFPAY ==
--- NOTE | ~2023-10-21 | XR_ITS ---
EXAMINATION: XR chest 2V DATE: 10/21/2023 14:24 INDICATION: Cough. TECHNIQUE: Frontal and lateral views of the chest were obtained. COMPARISON: Chest single view 08/31/2022, CT chest 01/08/2021 FINDINGS: The lung volumes are normal. There are interstitial opacities throughout the lungs. There a re lucencies in the lungs. Calcified left lung nodules are consistent with old granulomatous disease. No pleural effusion or pneumothorax. The heart size is normal. There are changes of anterior fusion procedure in cervical spine. There are bilateral breast implants. Surgical clips in the right upper q uadrant are likely from cholecystectomy. There is an old healed fracture of proximal left humerus. IMPRESSION: 1. Stable diffuse lung disease, likely a combination of emphysema and chronic interstitial lung disea se. Reviewed, dictated and finalized at location E. RIAL CONTROL SUPERVISOR IMPRESSION: 1. Stable diffuse lung disease, likely a combination of emphysema and chronic i nterstitial lung disease.
== END 2023-10-21 14:08 | disposition home or self-care (01) ==
PROVIDERS: PCP Family Medicine; Visit Provider Physician Assistant Medical
DX: J44.9 Chronic obstructive pulmonary disease, unspecified (principal); R05.9 Cough, unspecified
CPT/HCPCS: 71046

== ENCOUNTER 2024-01-05 12:21 | Outpatient (CLI) | payer MEDICARE, SELFPAY ==
--- NOTE | ~2024-01-05 | MMUS_ITS ---
EXAMINATION: MM diag lala implant RT w catrachita, US breast RT limited HISTORY: Follow-up right breast mass TECHNIQUE: Additional 3-D tomosynthesis images of the right breast were performed and synthetic 2-D i mages were generated. CAD analysis was submitted and interpreted. High resolution Limited right breas t ultrasound was performed. COMPARISON: Comparison to multiple prior studies sequentially, with oldest reviewed study dated 08/19. BREAST PARENCHYMAL COMPOSITION: Not dense: There are scattered areas of fibroglandular density. FINDINGS: MAMMOGRAPHIC FINDINGS: The right breast is stable. No new masses, calcifications or architectural distortion to suggest marco gnancy. There is a subglandular silicone implant. There are benign right breast calcifications unchan ged. ULTRASOUND: Limited right breast ultrasound: Stable round hypoechoic right breast mass at 10:00, 4 cm from the ni pple without posterior features or internal vascularity. There is an area of echogenicity with checker cashier ior shadowing near the nipple, consistent with calcification. No other suspicious masses are identifi ed. IMPRESSION: 1. Stable benign-appearing right breast mass. 2. Recommend 6 month follow-up Limited right breast ultrasound BI-RADS category 3, probably benign findings. Reviewed, dictated and finalized at location A. IMPRESSION: 1. Stable benign-appearing right breast mass. 2. Recommend 6 month follow-up Limited right breast ultrasound BI-RADS category 3, probably benign findings.
== END 2024-01-05 12:22 | disposition home or self-care (01) ==
LOC: ANHIMG 12:26
PROVIDERS: PCP Family Medicine; Visit Provider Physician Assistant
DX: R92.8 Other abnormal and inconclusive findings on diagnostic imaging of breast (principal); N63.10 Unspecified lump in the right breast, unspecified quadrant
CPT/HCPCS: 76642; 77061; 77065; G0279

== ENCOUNTER 2024-03-29 18:29 | Emergency (ER) | payer MEDICARE, SELFPAY ==
[2024-03-29] VITALS (9 sets, daily range): BP systolic 88–122; BP diastolic 55–76; PULSE 62–70; RESP 16–23; TEMP 36.6; O2SAT 95–100
--- NOTE | 2024-03-29 18:38 | ECG_ITS ---
Test Date: 2024-03-29 18:39:48 Measurements Intervals [place] Rate: 66 P: 21 [place]: 176 QRS: -20 QRSD: 110 T: 10 QT: 435 QTc: 456 Interpretive Statements SINUS RHYTHM VOLTAGE CRITERIA FOR LVH [MEETS CRITERIA IN ONE OF: R(aVL), S(V1), R(V5), R(V5/V6)+S(V1)] POOR R WAVE PROGRESSION No previous ECG available for comparison Electronically Signed On 03-30-2024 12:39:20 CDT by Andrew Cash M.D.
[2024-03-29 19:01] LABS: Basophils Absolute Auto 0.1 K/mm3 (0.0-0.1); Basophils Percent Auto 0.4 % (0.2-1.2); Eosinophils Absolute Auto 0.4 K/mm3 (0-0.3); Eosinophils Percent Auto 2.1 % (0-4.4); Hematocrit 42.4 % (37.0-47.0); Hemoglobin 13.6 g/dL (12.0-15.0); Immature Granulocyte Absolute 0.42 K/mm3 (0.00-0.031); Immature Granulocyte Percent A 2.2 % (0-0.5); Lymphocytes Absolute Auto 1.46 K/mm3 (0.9-3.2); Lymphocytes Percent Auto 7.6 % (18.3-44.2); Mean Corpuscular HGB Conc 32.1 g/dl (32-36); Mean Corpuscular Hemoglobin 29.9 pg (26-34); Mean Corpuscular Volume 93.2 fl (80-100); Mean Platelet Volume 10.8 fl (7.4-10.4); Monocytes Absolute Auto 1.2 K/mm3 (0.1-0.6); Neutrophils Absolute Auto 15.8 K/mm3 (1.3-6.7); Neutrophils Percent Auto 81.7 % (45.5-73.1); Platelet Count Result 345 k/mm3 (150-375); Red Blood Count 4.55 M/mm3 (4.2-5.4); Red Cell Distribution Width 13.8 % (11.5-14.5); White Blood Count 19.3 K/mm3 (4.5-10.0)
[2024-03-29] MEDS: SODIUM CHLORIDE 0.9% IV 1,000 ML 999 ML IV CONT ×2 (19:38→19:39)
--- NOTE | 2024-03-29 19:39 | ED.DIZZY ---
HPI - Dizziness General Chief Complaint: Syncope Stated Complaint: SYNCOPAL EPISODES Time Seen by Provider: 03/29/24 19:18 History of Present Illness HPI Narrative: Patient is also a 69-year-old female who presents to the emergency department this evening complaining of lightheadedness. Patient states that throughout the past 5 days she has been fighting a stomach bug and has been having diarrhea nonstop for the past 5 days. Patient states that the 1st day she did have 1 episode of emesis, nonbloody nonbilious. Since then, patient has had diarrhea almost all day. Patient states that today finally the diarrhea stopped but she started to feel lightheaded and had 3 near syncopal episodes at. Patient feels as though she is very dehydrated and decided to come to the emergency department for further evaluation. She is currently denying any active nausea, denies any abdominal pain, and is denying any additional symptoms including chest pain or shortness of breath. Patient does wear oxygen at home due to history of COPD. No additional symptoms or concerns at this time. Related Data Home Medications Medication Instructions Recorded Confirmed aspirin 81 mg tablet,delayed 81 mg PO DAILY 10/06/19 10/21/23 release fluticasone propionate 50 2 spray intranasal DAILY PRN 10/06/19 10/21/23 mcg/actuation nasal Allergies spray,suspension furosemide 20 mg tablet 20 mg PO QAM 10/06/19 10/21/23 gabapentin 300 mg capsule 300 mg PO BID 12/15/19 10/21/23 metoprolol tartrate 25 mg tablet 25 mg PO DAILY 12/15/19 10/21/23 vit 1 cap PO DAILY 11/06/20 10/21/23 C,E,zinc,Ly-mvodm-9-lutein-zeaxanthin 250 mg-2.5 mg-0.5 mg capsule mycophenolate mofetil 500 mg tablet 1,500 mg PO Q12H 01/13/22 10/21/23 Allergies Allergy/AdvReac Type Severity Reaction Status Date / Time bupropion Allergy Intermediate Rash Verified 03/29/24 18:39 QUIN Inhibitors Allergy Unknown Unknown Verified 03/29/24 18:39 codeine Allergy Unknown Unknown Verified 03/29/24 18:39 latex Allergy Unknown Unknown Verified 03/29/24 18:39 propoxyphene Allergy Unknown Unknown Verified 03/29/24 18:39 Sulfa (Sulfonamide Allergy Unknown Unknown Verified 03/29/24 18:39 Antibiotics) warfarin Allergy Unknown Unknown Verified 03/29/24 18:39 hydrocodone AdvReac Unknown GI UPSET\ Verified 03/29/24 18:39 Review of Systems Review of Systems: All systems are reviewed and are negative unless stated otherwise in the HPI. 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 but does not fit criteria for CREST Neuropathy Nonspecific interstitial pneumonia LYLY (obstructive sleep apnea) On CPAP of 9 with 3 L oxygen bleed in Osteoporosis With comminuted proximal left humeral fracture February 2021 Paroxysmal A-fib With single occurrence following hospitalization for sepsis/in a RLS (restless legs syndrome) SLE (systemic lupus erythematosus) Vascular disease Surgical History Surgical History History of cervical discectomy C4-C5 History of meniscectomy of right knee Hx laparoscopic cholecystectomy Status post cataract extraction of both eyes with insertion of intraocular lens Family History Family History Sibling Depression Asthma Hypertension Mother Diabetes mellitus Hyperte
[2024-03-29 19:55] LABS: Alanine Aminotransferase 18 U/L (6-35); Albumin Level 3.8 g/dL (3.5-5.1); Alkaline Phosphatase 93 U/L (38-126); Anion Gap 9 mmol/L (4-12); Aspartate Amino Transferase 24 U/L (14-36); Bilirubin,Total 0.4 mg/dL (0.2-1.3); Blood Urea Nitrogen 31 mg/dL (7-17); Calcium 9.4 mg/dL (8.4-10.2); Carbon Dioxide 26 mmol/L (22-30); Chloride 104 mmol/L (98-107); Estimated CRCL calculation 26 ml/min; Estimated Glomerular Filt Rate 25; Glucose 125 mg/dL (65-110); Potassium 3.2 mmol/L (3.4-5.0); Sodium 139 mmol/L (137-145)
[2024-03-29 20:18] LABS: Influenza A QL RT-PCR Negative (Negative); Influenza B QL RT-PCR Negative (Negative); RSV RNA, RT-PCR Negative (Negative); SARS-CoV-2 RNA PCR Negative (Negative)
== END 2024-03-29 21:15 | disposition home or self-care (01) ==
PROVIDERS: Student in an Organized Health Care Education/Training Program; Emergency Provider Emergency Medicine; PCP Family Medicine
DX: K52.9 Noninfective gastroenteritis and colitis, unspecified (principal); E86.0 Dehydration; N17.9 Acute kidney failure, unspecified; Z20.822 Contact with and (suspected) exposure to COVID-19; J44.9 Chronic obstructive pulmonary disease, unspecified; J96.11 Chronic respiratory failure with hypoxia; J84.9 Interstitial pulmonary disease, unspecified; Z99.81 Dependence on supplemental oxygen; I50.9 Heart failure, unspecified; I99.9 Unspecified disorder of circulatory system; E03.9 Hypothyroidism, unspecified; M79.7 Fibromyalgia; M32.9 Systemic lupus erythematosus, unspecified; M35.1 Other overlap syndromes; K21.9 Gastro-esophageal reflux disease without esophagitis; G62.9 Polyneuropathy, unspecified; G47.33 Obstructive sleep apnea (adult) (pediatric); G25.81 Restless legs syndrome; Z86.718 Personal history of other venous thrombosis and embolism; Z86.2 Personal history of diseases of the blood and blood-forming organs and certain disorders involving the immune mechanism; Z87.891 Personal history of nicotine dependence; Z90.49 Acquired absence of other specified parts of digestive tract; Z79.82 Long term (current) use of aspirin
CPT/HCPCS: 36415; 80053; 85025; 87637; 93005; 96360; 99284; J7030

== ENCOUNTER 2024-10-26 13:56 | Outpatient (CLI) | payer MEDICARE, SELFPAY ==
--- NOTE | ~2024-10-26 | XR_ITS ---
XR chest 2V 10/26/2024 14:23 Indication: Pneumonia Procedure: 2 view chest Comparison: Comparison to multiple prior studies sequentially, with oldest reviewed study dated 02/06. Findings: There are. Stable cardiomediastinal silhouette. Bilateral mixed interstitial and airspace i nfiltrates which are not significantly changed dating back to 10/21/2023. There are capsular calcific ations of the breast implants. No pneumothorax. Calcified granuloma left upper thorax. There is a hea led left humeral neck fracture. Impression: 1: Stable diffuse mixed interstitial and airspace disease at which may represent a combination of kimmy ma, pneumonia and chronic interstitial lung disease. Reviewed, dictated and finalized at location [facility]. D CERTIFIED ARTS THERAPIST Impression: 1: Stable diffuse mixed interstitial and airspace disease at which may represen t a combination of edema, pneumonia and chronic interstitial lung disease.
== END 2024-10-26 13:57 | disposition home or self-care (01) ==
PROVIDERS: PCP Family Medicine; Visit Provider Internal Medicine Critical Care Medicine
DX: J18.9 Pneumonia, unspecified organism (principal)
CPT/HCPCS: 71046

== ENCOUNTER 2025-02-08 11:10 | Emergency (ER) | payer MEDICARE, SELFPAY ==
--- NOTE | ~2025-02-08 | CT_ITS ---
EXAMINATION: CT chest abdomen pelvis w con DATE: 02/08/2025 13:05 INDICATION: Interstitial lung disease. Lung cancer. Nausea, vomiting and weakness. TECHNIQUE: Computed tomography (CT) of the chest, abdomen, and pelvis was performed with 100 mL Omnip aque-350 intravenous contrast. Automated exposure control and iterative reconstruction technique were employed. The dose-length product was 980.18 mGy-cm. COMPARISON: None FINDINGS: CHEST CT: Mild to moderate upper lung predominant emphysema. Biapical pleural-parenchymal scarring, right great er than left. Scattered bilateral calcified pulmonary nodules along with calcified left hilar lymph n odes consistent with old granulomatous disease. Again seen are peripheral and lower lung predominant irregular septal line thickening and groundglass opacities consistent with nonspecific interstitial p neumonia (NSIP) pattern chronic interstitial lung disease. 1.7 x 1.2 cm peripheral irregular nodular opacity at the anterior apex of the right upper lobe. No pleural effusion. Mild cardiomegaly. Episodi c coronary artery calcium location. No pericardial effusion. Thoracic aorta is normal in caliber with no dissection. No pathologically enlarged thoracic lymphadenopathy. Bilateral breast implants with c apsular calcific lesions. There is extracapsular fluid the left breast implant consistent with likely implant rupture. Mild thoracic spondylosis with bridging osteophytes at multiple levels consistent w ith diffuse idiopathic skeletal hyperostosis (DISH). ABDOMEN/PELVIS CT: Cholecystectomy clips the gallbladder fossa. Liver, spleen, pancreas and bilateral adrenal glands are normal. Small region of cortical scarring at both kidneys likely sequela prior infection or infarcti on. There is moderate colonic diverticulosis with a sigmoid predominance. There is no adjacent infla mmatory change to suggest diverticulitis. Small bowel and appendix are normal. Bladder, uterus and b ilateral adnexa are unremarkable. Mild lumbar spondylosis. IMPRESSION: 1. Mild to moderate emphysema with NSIP pattern chronic interstitial lung disease. 2. 1.7 x 1.2 cm peripheral irregular nodular opacity right apex which could represent atelectasis/sca rring, focal pneumonia or potentially malignancy. Correlate with any more recent prior outside imagin g. Otherwise would consider either further evaluation with PET/CT or 3 month follow-up chest CT. 3. Mild cardiomegaly. 4. Diverticulosis. 5. Bilateral breast implants extracapsular fluid on the left suggesting possible implant rupture. Reviewed, dictated and finalized at location A. IMPRESSION: 1. Mild to moderate emphysema with NSIP pattern chronic interstitial lung disea se. 2. 1.7 x 1.2 cm peripheral irregular nodular opacity right apex which could rep resent atelectasis/scarring, focal pneumonia or potentially malignancy. Correla te with any more recent prior outside imaging. Otherwise would consider either further evaluation with PET/CT or 3 month follow-up chest CT. 3. Mild cardiomegaly. 4. Diverticulosis. 5. Bilateral breast implants extracapsular fluid on the left suggesting possibl e implant rupture.
[2025-02-08 11:09] VITALS: BP 139/62; PULSE 88; RESP 24; TEMP 36.5; O2SAT 99
[2025-02-08] MEDS: ONDANSETRON INJ 4 MG/2 ML VIAL 8 MG IV PUSH (12:05)
[2025-02-08 12:07] LABS: Basophils Percent Auto 0.2 % (0.2-1.2); Eosinophils Percent Auto 0.4 % (0-4.4); Hematocrit 38.4 % (37.0-47.0); Hemoglobin 11.6 g/dL (12.0-15.0); Immature Granulocyte Absolute 0.07 K/mm3 (0.00-0.031); Immature Granulocyte Percent A 0.7 % (0-0.5); Lymphocytes Absolute Auto 0.66 K/mm3 (0.9-3.2); Mean Corpuscular HGB Conc 30.2 g/dl (32-36); Mean Corpuscular Hemoglobin 28.7 pg (26-34); Mean Platelet Volume 10.4 fl (7.4-10.4); Monocytes Absolute Auto 0.8 K/mm3 (0.1-0.6); Monocytes Percent Auto 8.2 % (2.6-8.5); Neutrophils Absolute Auto 7.9 K/mm3 (1.3-6.7); Neutrophils Percent Auto 83.5 % (45.5-73.1); Platelet Count Result 329 k/mm3 (150-375); Red Blood Count 4.04 M/mm3 (4.2-5.4); Red Cell Distribution Width 12.7 % (11.5-14.5); White Blood Count 9.4 K/mm3 (4.5-10.0)
[2025-02-08 12:18] LABS: Alanine Aminotransferase 21 U/L (6-35); Albumin Level 4.1 g/dL (3.5-5.1); Alkaline Phosphatase 133 U/L (38-126); Anion Gap 11 mmol/L (4-12); Aspartate Amino Transferase 32 U/L (14-36); Bilirubin,Total 0.4 mg/dL (0.2-1.3); Blood Urea Nitrogen 21 mg/dL (7-17); Calcium 9.2 mg/dL (8.4-10.2); Carbon Dioxide 31 mmol/L (22-30); Chloride 100 mmol/L (98-107); Estimated CRCL calculation 85 ml/min; Estimated Glomerular Filt Rate > 60; Glucose 102 mg/dL (65-110); Lipase 19 U/L (23-300); Potassium 3.3 mmol/L (3.4-5.0); Sodium 142 mmol/L (137-145)
[2025-02-08 12:30] VITALS: BP 113/65; PULSE 83; RESP 17; O2SAT 99
--- NOTE | 2025-02-08 12:39 | ED_ITS ---
HPI - Nausea/Vomiting/Diarrhea General Chief complaint: Nausea/Vomiting/Diarrhea Stated complaint: N/V Time Seen by Provider: 02/08/25 11:53 Source: patient, family and EMS Mode of arrival: EMS History of Present Illness HPI Narrative: 69 YEARS OLD WHITE FEMALE CAME TO THE ED FROM HOME BY AMBULANCE COMPLAINING OF A LOT OF VOMITING A LOT OF DIARRHEA OVER THE LAST 2-3 DAYS. SHE DENIES ABDOMINAL PAIN. HISTORY OF INTERSTITIAL LUNG DISEASE ON OXYGEN 4-6 L AT REST, RECENT DIAGNOSIS OF LUNG CANCER, 6 MONTHS AGO, NOT A CANDIDATE FOR TREATMENT BECAUSE OF THE INTERSTITIAL LUNG DISEASE PATIENT DENIES ANY FEVER OR CHILLS ABDOMINAL PAIN OR BACK PAIN OR TROUBLE BREATHING. PATIENT DENIES SICK CONTACT Related Data Home Medications ?Medication ?Instructions ?Recorded ?Confirmed ?Last Taken ?Type aspirin 81 mg tablet,delayed 81 mg PO DAILY 10/06/19 02/05/25 Unknown History release fluticasone propionate 50 2 spray intranasal DAILY PRN 10/06/19 02/05/25 Unknown History mcg/actuation nasal Allergies spray,suspension furosemide 20 mg tablet 20 mg PO QAM 10/06/19 02/05/25 Unknown History gabapentin 300 mg capsule 300 mg PO BID 12/15/19 02/05/25 Unknown History metoprolol tartrate 25 mg tablet 25 mg PO DAILY 12/15/19 02/05/25 Unknown History vit 1 cap PO DAILY 11/06/20 02/05/25 Unknown History C,E,zinc,Vr-dxcub-7-lutein-zeaxanthin 250 mg-2.5 mg-0.5 mg capsule mycophenolate mofetil 500 mg tablet 1,500 mg PO Q12H 01/13/22 02/05/25 Unknown History prednisone 10 mg tablet 10 mg PO DAILY 08/07/24 02/05/25 Unknown History treprostinil 1.74 mg/2.9 mL (0.6 6 inh inhalation Q4H 10/26/24 02/05/25 Unknown History mg/mL) solution for nebulization (Tyvaso) Allergies Allergy/AdvReac Type Severity Reaction Status Date / Time bupropion Allergy Intermediate Rash Verified 02/08/25 11:16 QUIN Inhibitors Allergy Unknown Unknown Verified 02/08/25 11:16 codeine Allergy Unknown Unknown Verified 02/08/25 11:16 latex Allergy Unknown Unknown Verified 02/08/25 11:16 propoxyphene Allergy Unknown Unknown Verified 02/08/25 11:16 Sulfa (Sulfonamide Allergy Unknown Unknown Verified 02/08/25 11:16 Antibiotics) warfarin Allergy Unknown Unknown Verified 02/08/25 11:16 hydrocodone AdvReac Unknown GI UPSET\ Verified 02/08/25 11:16 Review of Systems 2 Review of Systems: All systems reviewed & are unremarkable except as noted in HPI and below PMFSH Past Medical History Medical History COPD (chronic obstructive pulmonary disease) Chronic respiratory failure with hypoxia, on home O2 therapy Heart failure with preserved ejection fraction Depression SLE (systemic lupus erythematosus) Nonspecific interstitial pneumonia 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 but does not fit criteria for CREST Diarrhea History of tobacco abuse Paroxysmal A-fib With single occurrence following hospitalization for sepsis/in a Fibromyalgia Asthma Allergic rhinitis Neuropathy GERD (gastroesophageal reflux disease) RLS (restless legs syndrome) LYLY (obstructive sleep apnea) On CPAP of 9 with 3 L oxygen bleed in ILD (interstitial lung disease) (~2008) On chronic immunosuppression with CellCept Hypothyroidism Secondary to treatment for Graves disease Osteoporosis With comminuted proximal left humeral fracture February 2021 Vascular disease Hypertension History of DVT (deep vein thrombosis) At 30 years old Anemia Surgical History Surgical History Status post cataract extraction of both eyes with insertion of intraocular lens History of meniscectomy of right knee History of cervical discectomy C4-C5 Hx laparoscopic cholecystectomy Family History Family History Sibling Depression Asthma Hypertension Mother Diabetes mellitus Hypertension Asthma Cerebrovascular accident Family history of chronic obstructive pulmonary disease Family history of lung cancer Father Diabetes mellitus Social History Social History Social History: She has been . Smoking packs per day: 1 Smoking cigarettes per day: 20.0 Years smoked: 25 Smoking pack-years: 25.00 Smoking status: Former smoker Second hand tobacco smoke exposure: Yes Additional smoking assessment comments: quit 5 years ago Alcohol intake: never Alcohol use details: occasional Substance use: never Substance use type: does not use Lack of Transportation: No Lack of Food: Never True Current Housing: I Have Housing Concerned About Future Housing: No Difficulty Paying Gas/Electric Bills: No Difficulty Paying for Meds: No Currently Unemployed: No Education: Trade/Vocational Certificate Difficulty w/ Childcare or Family Care: No Living arrangements: with family Additional living arrangements comments: [place] Occupation/Education: retired Gender identity (if verbalized by the patient): Female Sexual Orientation (if Verbalized by the Patient): Straight or Heterosexual Spiritual care concerns: No Exam 2 Narrative: GENERAL APPEARANCE: WELL-DEVELOPED, WELL-NOURISHED SKIN: NORMAL COLOR HEAD: NORMOCEPHALIC, NONTRAUMATIC EYES: CLEAR CONJUNCTIVA ENT: OROPHARYNX NORMAL, EARS NORMAL, NOSE NORMAL NECK: SUPPLE, NONTENDER CHEST AND RESPIRATORY: AIRWAY PATENT, NO RESPIRATORY DISTRESS, NO ACCESSORY MUSCLE USE HEART: REGULAR RATE/RHYTHM ABDOMEN: SOFT, NONTENDER, NO ORGANOMEGALY, QUIET BOWEL SOUNDS VASCULAR: NORMAL PERIPHERAL PULSES, NORMAL CAPILLARY REFILL. MUSCULOSKELETAL: NORMAL RANGE OF MOTION, NONTENDER BACK NEUROLOGIC: ALERT AND ORIENTED ?3, GEOLOGICAL SURVEY FIELD ASSISTANT IS NORMAL TESTED, NO GROSS MOTOR DEFICIT Course Vital Signs Vital signs: Vital Signs Temperature 36.5 C 02/08/25 11:09 Pulse Rate 88 02/08/25 11:09 Respiratory Rate 24 H 02/08/25 11:09 Blood Pressure 139/62 02/08/25 11:09 Pulse Oximetry 99 02/08/25 11:09 Oxygen Delivery Nasal Cannula 02/08/25 11:09 Oxygen Flow Rate 5 02/08/25 11:09 Temperature 36.5 C 02/08/25 11:09 Pulse Rate 94 02/08/25 14:03 Respiratory Rate 18 02/08/25 14:00 Blood Pressure 134/72 02/08/25 14:03 Pulse Oximetry 100 02/08/25 14:00 Oxygen Delivery Nasal Cannula 02/08/25 11:09 Oxygen Flow Rate 5 02/08/25 11:09 MDM - Nausea/Vomiting/Diarrhea MDM Narrative Medical decision making narrative: PATIENT PRESENTS WITH NAUSEA, VOMITING AND DIARRHEA FOR THE LAST 2-3 DAYS VITAL SIGNS SHOWING RESPIRATORY RATE 24 OTHERWISE WITHIN NORMAL LIMIT PHYSICAL EXAMINATION SHOWING A RESTLESS PATIENT, ON OXYGEN BY NASAL CANNULA 5 L DIFFERENTIAL DIAGNOSIS INCLUDE GASTROENTERITIS, DEHYDRATION, ELECTROLYTE IMBALANCE, LUNG CANCER WITH METASTASIS BLOOD WORKUP TODAY INCLUDES CBC, CMP, LIPASE SHOWED POTASSIUM 3.3, BUN 21, CREATININE 0.59 URINALYSIS SHOWED NO EVIDENCE OF INFECTION CT CHEST ABDOMEN AND PELVIS WITH IV CONTRAST SHOWED FINDING RELATED TO THE LUNG CANCER, INTERSTITIAL PULMONARY FIBROSIS AND BREAST IMPLANT OTHERWISE INSIGNIFICANT FINDINGS. Differential Diagnosis Differential diagnosis: Likely other ( ABOVE) Lab Data 02/08/25 11:58 02/08/25 11:58 Labs: Lab Results 02/08/25 02/08/25 02/08/25 Range/Units 11:58 13:16 14:02 WBC 9.4 (4.5-10.0) K/mm3 RBC 4.04 L (4.2-5.4) M/mm3 Hgb 11.6 L (12.0-15.0) g/dL Hct 38.4 (37.0-47.0) % MCV 95.0 (80-100) fl MCH 28.7 (26-34) pg MCHC 30.2 L (32-36) g/dl RDW 12.7 (11.5-14.5) % Plt Count 329 (150-375) k/mm3 MPV 10.4 (7.4-10.4) fl Immature Gran % (Auto) 0.7 H (0-0.5) % Neut % (Auto) 83.5 H (45.5-73.1) % Lymph % (Auto) 7.0 L (18.3-44.2) % [place] % (Auto) 8.2 (2.6-8.5) % Eos % (Auto) 0.4 (0-4.4) % Baso % (Auto) 0.2 (0.2-1.2) % Lymph # (Auto) 0.66 L (0.9-3.2) K/mm3 [place] # (Auto) 0.8 H (0.1-0.6) K/mm3 Eos # (Auto) 0.0 (0-0.3) K/mm3 Baso # (Auto) 0.0 (0.0-0.1) K/mm3 Abs Immat Gran (auto) 0.07 H (0.00-0.031) K/mm3 Absolute Neuts (auto) 7.9 H (1.3-6.7) K/mm3 Absolute Nucleated RBC 0.000 (0.0-0.012) K/mm3 Nucleated RBC % 0.0 (0.0-0.2) % Sodium 142 (137-145) mmol/L Potassium 3.3 L (3.4-5.0) mmol/L Chloride 100 (98-107) mmol/L Carbon Dioxide 31 H (22-30) mmol/L Anion Gap 11 (4-12) mmol/L BUN 21 H D (7-17) mg/dL Creatinine 0.59 L (0.7-1.0) mg/dL Estim Creat Clear Calc 85 ml/min Estimated GFR > 60 (59 - ) Glucose 102 (65-110) mg/dL Calcium 9.2 (8.4-10.2) mg/dL Total Bilirubin 0.4 (0.2-1.3) mg/dL AST 32 (14-36) U/L ALT 21 (6-35) U/L Alkaline Phosphatase 133 H (38-126) U/L Total Protein 7.0 (6.3-8.2) g/dL Albumin 4.1 (3.5-5.1) g/dL Lipase 19 L (23-300) U/L Urine Color Dark yellow (Yellow) Urine Appearance Clear (Clear) Urine pH 6.0 (5.0-9.0) Ur Specific [place] > 1.045 H (1.001-1.035) Urine Protein 1+ H (Negative) mg/dL Urine Glucose (UA) Negative (Negative) mg/dL Urine Ketones Trace H (Negative) mg/dL Ur Blood (Man) Negative (Negative) Urine Nitrate Negative (Negative) Urine Bilirubin Negative (Negative) Urine Urobilinogen 0.2 (<2.0) mg/dL Leukocyte Esterase Rfl Negative (Negative) CHER/UL Urine RBC 0-2 (0-2) /hpf Urine WBC 0-5 (0-3) /hpf Ur Squamous Epith Cells Few (Few) /hpf Urine Bacteria Trace (None) /hpf Urine Casts ---- Influenza A (RT-PCR) Negative (Negative) Influenza B (RT-PCR) Negative (Negative) RSV (RT-PCR) Negative (Negative) SARS-CoV-2 RNA (RT-PCR) Negative (Negative) Imaging Data Radiologist's impression: Impressions Chest/Abdomen/Pelvis CT 02/08/25 13:22 IMPRESSION: 1. Mild to moderate emphysema with NSIP pattern chronic interstitial lung disease. 2. 1.7 x 1.2 cm peripheral irregular nodular opacity right apex which could represent atelectasis/scarring, focal pneumonia or potentially malignancy. Correlate with any more recent prior outside imaging. Otherwise would consider either further evaluation with PET/CT or 3 month follow-up chest CT. 3. Mild cardiomegaly. 4. Diverticulosis. 5. Bilateral breast implants extracapsular fluid on the left suggesting possible implant rupture. Discharge Plan Discharge Clinical Impression: Gastroenteritis Patient Disposition: Home Condition: Improved Instructions: Hypokalemia (ED), Gastroenteritis (ED) Additional Instructions: RETURN IF SYMPTOMS ARE WORSENING , CALL YOUR FAMILY PHYSICIAN FOR APPOINTMENT, TAKE TYLENOL NEEDED FOR ACHES AND PAIN, CONTINUE HOME MEDICATIONS. Patient Language: Japanese Prescriptions: New potassium chloride [K-Tab] 20 mEq tablet extended release 20 meq PO BID Qty: 10 0RF No Action gabapentin 300 mg capsule 300 mg PO BID metoprolol tartrate 25 mg tablet 25 mg PO DAILY Tyvaso 1.74 mg/2.9 mL (0.6 mg/mL) solution for nebulization 6 inh inhalation Q4H Rx Instructions: administer 4 doses per day while awake albuterol sulfate 90 mcg/actuation HFA aerosol inhaler 1 puff inhalation Q4H PRN (Reason: shortness of breath or wheezing) Qty: 8.5 2RF prednisone 10 mg tablet 10 mg PO DAILY doxycycline hyclate 100 mg tablet 100 mg PO BID 7 Days Qty: 14 0RF furosemide 20 mg tablet 20 mg PO QAM fluticasone propionate 50 mcg/actuation spray,suspension 2 spray NASAL DAILY PRN (Reason: Allergies) aspirin 81 mg tablet,delayed release (DR/EC) 81 mg PO DAILY montelukast 10 mg tablet 10 mg PO DAILY Qty: 30 2RF vit C,E,Zn,It--tce-zeax 250-2.5-0.5 mg capsule 1 cap PO DAILY flecainide 150 mg tablet 150 mg PO DAILY Qty: 30 0RF hydrochlorothiazide 12.5 mg capsule 12.5 mg PO DAILY Qty: 90 2RF mycophenolate mofetil 500 mg tablet 1,500 mg PO Q12H albuterol sulfate 90 mcg/actuation HFA aerosol inhaler 1 inh inhalation Q4H PRN (Reason: shortness of breath or wheezing) Qty: 8.5 0RF rosuvastatin [Crestor] 5 mg tablet 5 mg PO DAILY Qty: 90 1RF irbesartan 300 mg tablet 300 mg PO DAILY Qty: 100 2RF levothyroxine 137 mcg tablet 137 mcg PO DAILY Qty: 30 2RF pantoprazole 40 mg tablet,delayed release (DR/EC) 40 mg PO QAM Qty: 100 2RF duloxetine 30 mg capsule,delayed release(DR/EC) 30 mg PO BID Qty: 200 2RF Follow-up/Referrals: Pranav Cohen MD [Primary Care Provider] -
--- OUTSIDE RECORDS SUMMARY | 2025-02-08 13:16 | XMS_ITS | Clinical Summary ---
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 Name Role Phone Pranav Cohen MD Primary Care Provider [phone] Allergies Active Allergy Reactions Criticality Noted Date Comments Beta-Blockers (Beta-Adrenergic Blocking Agts) Swelling Low 05/23/2018 Bupropion Rash Medium Bupropion Hcl Unknown 02/23/2012 Codeine Unknown,Dizziness Low 02/23/2012 Other reaction(s): Vomiting Other reaction(s): Vomiting Latex Unknown,Hives,Rash High Propoxyphene Unknown,Dizziness,Ra sh Medium Other reaction(s): Vomiting darvocet Other reaction(s): Vomiting darvocet Sulfanilamide Unknown Sulfasalazine Rash Medium Medications hydroCHLOROthia zide (MICROZIDE) 12.5 mg capsule 06/10/2018 Act cleopatra furosemide (LASIX) 20 mg tablet 20 mg. 07/12/2015 Active aspirin (LUIS CHEWABLE) 81 mg Tablet, Chewable Take 81 mg by mouth. Active Cetirizine 10 mg Capsule Take by mouth. Active DULoxetine (CYMBALTA) 30 mg Capsule, Delayed Release(E.C.) Take 1 Capsule by mouth. 05/03/2018 Active gabapentin (NEURONTIN) 300 mg capsule Take 300 mg by mouth. 11/09/2017 Active pantoprazole (PROTONIX) 40 mg Tablet, Delayed Release (E.C.) TAKE 1 TABLET BY MOUTH DAILY. 05/05/2017 Active vitamins A,C,E-zinc-shane er 7,160-113-100 dysr-gv-trjf Tablet, Delayed Release (E.C.) Take by mouth. Active albuterol HFA 90 mcg inhaler 90 mcg. 08/30/2009 Acti ve DULoxetine (CYMBALTA) 30 mg Capsule, Delayed Release(E.C.) Take 30 mg by mouth daily. 08/29/2019 Active flecainide (TAMBOCOR) 150 mg Tablet Take 75 mg by mouth 2 times daily. 11/10/2021 Active Irbesartan (AVAPRO) 300 mg tablet 10/23/2021 Active levothyroxine 125 mcg tablet Take 125 mcg by mouth. Active mycophenolate mofetil (CELLCEPT) 500 mg tablet Take 1,500 mg by mouth 2 times daily. Active Active Problems Problem Noted Date Diagnosed Date BRCA negative 09/16/2018 Overview (09/16/2018): NEGATIVE. The patient underwent the [employer] my risk genetic testing for hereditary cancer syndromes due to an extensive maternal family history of premenopausal breast cancer and ovarian cancer. The patient tested negative for any deleterious mutations in all 28 genes that were tested. This testing included the genes responsible for HBOC, Vera syndrome, as well as most other common hereditary cancer syndromes. Family history of malignant neoplasm of breast in relative diagnosed when younger than 45 years of age 1008/03/2018 Family history of ovarian cancer 08/03/2018 Family history of lymphoma 08/03/2018 Genetic testing 08/03/2018 Preop cardiovascular exam 08/01/2018 Overview (09/16/2018): Last Assessment & Plan: She will undergo a elbow surgery as well as eye surgery. 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 Event monitor showed no atrial fibrillation. Continue to observe Palpitations 07/26/2017 Overview (09/16/2018): Last Assessment & Plan: On a previous event monitor there was evidence of atrial tachycardia and SVT. Palpitations are rare. Observe for now. Exertional dyspnea 06/14/2017 Overview (09/16/2018): Last Assessment & Plan: Stress test was negative for ischemia. Right ventricular pressure was 32. She does have mild restrictive lung disease on pulmonary function test. Also dyspnea on exertion likely related to obesity, deconditioning as well as type 1 diastolic dysfunction. Nonspecific chest pain 06/14/2017 Overview (09/16/2018): Last Assessment & Plan: Chest pain since she was in her 20s. Negative exercise echo stress test for ischemia. Continue to observe. Obesity (BMI 30-39.9) 06/14/2017 Overview (09/16/2018): Last Assessment & Plan: Advised about diet modification and regular exercise to help her lose weight. 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 Continue current treatment Muscle pain 12/01/2012 Overview (09/16/2018): Overview: Myalgia Fatigue 05/04/2012 Overview (09/16/2018): Overview: Fatigue Family History Medical History Relation Name Comments Healthy Daughter 1 Cancer Daughter 2 Hodgkin's Diabetes Father Breast Cancer Maternal Aunt 1 Ovarian Cancer Maternal Aunt 1 Breast Cancer Maternal Aunt 3 Bilateral b reast 36 and 50 Heart Disease Maternal Aunt 3 Breast Cancer Maternal Cousin 1 Bilateral breast Cancer Maternal Cousin 2 Liver canc er Cancer Maternal Cousin 3 Female can cer Heart Disease Maternal Grandmother Cancer Maternal Uncle 1 Non-Hodgkin 's lymphoma Lung Cancer Maternal Uncle 2 Heart Disease Maternal Uncle 3 Cancer Maternal Uncle 5 Unknown can cer Heart Disease Maternal Uncle 6 Lung Cancer Mother Cancer Paternal Uncle Thyroid cance r Healthy Sister 1 Healthy Sister 2 Healthy Son Relation Name Status Comments Brother Daughter 1 Alive Daughter 2 Alive Father Maternal Aunt 1 Maternal Aunt 2 Alive Maternal Aunt 3 Maternal Cousin 1 Alive Maternal Cousin 2 Alive Maternal Cousin 3 Maternal Grandfather Maternal Grandmother Maternal Uncle 1 Maternal Uncle 2 Maternal Uncle 3 Maternal Uncle 4 Alive Maternal Uncle 5 Maternal Uncle 6 Maternal Uncle 7 Alive Mother Paternal Grandfather Paternal Grandmother Paternal Uncle Sister 1 Alive Sister 2 Alive Son Alive Social History Tobacco Use Types Packs/Day Years Used Date Smoking Tobacco: Former Smokeless Tobacco: Former Quit: 06/18/2015 Alcohol Use Standard Drinks/Week Comments Yes 0 (1 standard drink = 0.6 oz pur e alcohol) Comments No Sex and Gender Information Value Date Recorded Sex Assigned at Not on file Legal Sex Female 5:10 AM E [employer]ORDIN[employer] Gender Identity Not on file Sexual Orientation Not on file Occupation Industry Job Start Date Job End Date retired Not on file Not on file Not on file Last Filed Vital Signs Vital Sign Reading Time Taken Comments Blood Pressure 134/71 12/26/2021 11:12 AM E [employer] Pulse 64 12/26/2021 11:12 AM E [employer]ORDINATOR Temperature 36.1 C (97 F) 12/26/2021 11:12 AM E [employer] COORDINATOR Respiratory Rate - - Oxygen Saturation 94% 12/26/2021 11:12 AM E [employer] CO[employer]INATOR Inhaled Oxygen Concentration - - Weight 88.6 kg (195 lb 4.8 oz) 12/26/2021 11:12 AM E [employer] COORDINATOR Height 165.1 cm (5' 5 ) 12/26/2021 11:12 AM E [employer] COORDINATOR Body Mass Index 32.5 12/26/2021 11:12 AM E [employer] COORDINATOR Plan of Treatment Health Maintenance Due Date Last Done Comments DTAP/TDAP/TD VACCINES (1 - Tdap) 1974 COLORECTAL SCREENING 2000 Colorectal Cancer Screening 2000 FIT-DNA Q 3 years 2000 FIT/FOBT Q 1 year 2000 Flex Sig/CT Colonography Q 5 years 2000 PNEUMOCOCCAL VACCINE 50+ YEA RS (1 of 1 - PCV) 2005 ZOSTER VACCINE (1 of 2) 2005 RSV VACCINE (60+ or ) (1 - Risk 60-74 years 1-dose series) 2015 OSTEOPOROSIS SCREENING 2020 BREAST CANCER SCREENING 07/04/2020 07/04/20 19, 12/27/2018, 06/28/2018, Additional history exists INFLUENZA VACCINE (#1) 2024 08/26/2021 COVID-19 Vaccine (2 - 2023-2 5 season) 2024 12/20/2020 Procedures Procedure Name Priority Date/Time Associated Diagnosis Comments MAMMO 3D PHILLY DIAGNOSTIC BILAT W OR WO CAD Routine 07/04/2019 11:36 AM CDT Discharge from left nipple Inversion of nipple - Left Family history of malignant neoplasm of breast in relative diagnosed when younger than 45 years of age Family history of ovarian cancer BRCA negative from Last 3 Months or Most Recently Relevant to Health Maintenance Results * MAMMO DIAG BILAT 3D PHILLY W OR WO CAD (07/04/2019 11:36 AM CDT) Anatomical Region Laterality Modality Breast Bilateral Mammography 07/04/2019 11:3 6 AM CDT Impressions 07/04/2019 4:40 PM CDT IMPRESSION: No mammographic evidence of malignancy. RECOMMENDATIONS: Routine mammogram in one year. DICTATION LOCATION: [facility] Narrative 07/04/2019 4:40 PM CDT EXAM: BILATERAL DIAGNOSTIC FULL-FIELD DIGITAL MAMMOGRAPHY WITH CAD WITH 3D TOMOSYNTHESIS DATE: 07/04/2019 11:36 AM HISTORY: The patient describes occasional nipple discharge on the left for the past year which is white in color. She denies spontaneous bloody or clear nipple discharge. Mild intermittent tenderness in the upper left breast. Family history of breast cancer in two maternal aunts, and maternal cousin and ovarian cancer in a maternal aunt. TECHNIQUE: Mediolateral oblique and craniocaudal views of both breasts were performed using full field digital mammography. Low-dose full-field digital breast tomosynthesis examination was performed with 2D and 3D acquisitions. Examination is read in conjunction with computer aided detection. COMPARISON: August 2017 through December 2018 BREAST COMPOSITION: Scattered fibroglandular densities. FINDINGS: Bilateral subglandular silicone implants remain stable. Abnormal density along the lower inner aspect of the left implant is suggestive of implant rupture, unchanged since the previous exams. No suspicious findings are seen on the current mammogram. Since the prior study, there has been no significant change. CAD detected no significant abnormality. OVERALL FINAL ASSESSMENT: BI-RADS CATEGORY 1 - Negative Procedure Note ChambersAriel MD - 07/04/2019 EXAM: BILATERAL DIAGNOSTIC FULL-FIELD DIGITAL MAMMOGRAPHY WITH CAD WITH 3D TOMOSYNTHESIS DATE: 07/04/2019 11:36 AM HISTORY: The patient describes occasional nipple discharge on the left for the past year which is white in color. She denies spontaneous bloody or clear nipple discharge. Mild intermittent tenderness in the upper left breast. Family history of breast cancer in two maternal aunts, and maternal cousin and ovarian cancer in a maternal aunt. TECHNIQUE: Mediolateral oblique and craniocaudal views of both breasts were performed using full field digital mammography. Low-dose full-field digital breast tomosynthesis examination was performed with 2D and 3D acquisitions. Examination is read in conjunction with computer aided detection. COMPARISON: August 2017 through December 2018 BREAST COMPOSITION: Scattered fibroglandular densities. FINDINGS: Bilateral subglandular silicone implants remain stable. Abnormal density along the lower inner aspect of the left implant is suggestive of implant rupture, unchanged since the previous exams. No suspicious findings are seen on the current mammogram. Since the prior study, there has been no significant change. CAD detected no significant abnormality. OVERALL FINAL ASSESSMENT: BI-RADS CATEGORY 1 - Negative IMPRESSION: No mammographic evidence of malignancy. RECOMMENDATIONS: Routine mammogram in one year. DICTATION LOCATION: [facility] Chasidy Rios MD MAMMO ORDERABLES Final R esult from Last 3 Months or Most Recently Relevant to Health Maintenance Insurance Care Teams [employer] Painter Relationship Specialty Start Date End Date Pranav Cohen MD [address] [address] [facility] [address] [place] [id number] PCP - General Family Practice 09/16/18
--- OUTSIDE RECORDS SUMMARY | 2025-02-08 13:16 | XMS_ITS | Data Portability ---
Author Organization [facility], [place]line [place] Address [address] [place] [address] [place] [address] Assessment No assessment recorded. Plan of Treatment Reminders Order Date Submit Date Provider Last Modified By Organization Details Last Modified Time Details Appointments None recorded. Lab culture, urine 2023 024 [employer] [facility], [address], [place], [address], 4 17:30:37 urinalysis , complete 2023 024 [employer] [facility], [address], [place], [address], 4 10:14:31 Referral None recorded. Procedures None recorded. Surgeries None recorded. Imaging None recorded. Medication Orders None recorded. Patient TargetsNo targets recorded. Patient InstructionsNo instructions recorded. Reason for Referral None Reported. Results Created Date Observation Date Name Description Value Unit Range Abnormal Flag Note LastModifiedBy Organization Detail LastModifiedTime Result Notes None recorded. Problems Name Problem SNOMED Code Status Onset Date Resolution Date Notes Provider Name and Address Organization Details Recorded Time Screening for malignant neoplasm of rectum Active 2017 Encounter for screening for malignant neoplasm of rectum;Rec orded Elsewhere: No Locatio n: [facility] rce: EHR Chroni c: N Practice ID: 0001 Billa ble Time: 01:15:00 PM Not Available [facility] 0 14:31:[address] Concept Active 2017 Encntr for general adult medical exam w/o abnormal findings;R ecorded Elsewhere: No Locatio n: [facility] rce: EHR Chroni c: N Practice ID: 0001 Billa ble Time: 01:15:00 PM Not Available [facility] 0 14:31:[address] Concept Active 2017 Encntr for band sawyer exam (general) (routine) w/o abn findings;R ecorded Elsewhere: No Locatio n: [facility] rce: EHR Chroni c: N Practice ID: 0001 Billa ble Time: 01:15:00 PM Not Available [facility] 0 14:31:16 Abnormal weight loss 349314340 Active 2011 Loss of weight;Rec orded Elsewhere: No Locatio n: [facility] rce: EHR Chroni c: N Practice ID: 0001 Billa ble Time: 10:30:00 AM Not Available [facility] 0 14:31:16 Disorder of breast 40102390 Active 2017 Disorder of breast, unspecifie d;Recorded Elsewhere: No Locatio n: [facility] rce: EHR Chroni c: N Practice ID: 0001 Billa ble Time: 10:45:00 AM Not Available [facility] 0 14:31:16 Disorder of bone and articular cartilage 018144671 Active 2011 Disorder of bone and cartilage, unspecifie d;Recorded Elsewhere: No Locatio n: [facility] rce: EHR Chroni c: N Practice ID: 0001 Billa ble Time: 10:30:00 AM Not Available [facility] 0 14:31:16 Female genital organ symptoms 561467102 Active 2011 Unspecifie d symptom associated with female genital organs;Rec orded Elsewhere: No Locatio n: [facility] rce: EHR Chroni c: N Practice ID: 0001 Billa ble Time: 10:30:00 AM Not Available [facility] 0 14:31:17 Adult health examinati on Active 2010 Routine general medical examinatio n at a health care facility;Dorothy werner ID: 0001 Not Available [facility] 0 14:31:17 Specializ ed medical examinati on Active 2010 Routine gynecologi sushil examinatio n;Practice ID: 0001 Not Available [facility] 0 14:31:17 Screening for malignant neoplasm of cervix Active 2010 Pap Smear;Prac suma ID: 0001 Not Available [facility] 0 14:31:17 Screening for malignant neoplasm of colon Active 2010 Special screening for malignant neoplasms, colon;Prac suma ID: 0001 Not Available [facility] 0 14:31:17 Problem Notes None recorded. Procedures Surgical History Date Name Laterality Status Provider Name and Address Organization Details Recorded Time 6 procedure on shoulder completed [facility] 02/08/2024 16:41:49 4 procedure on spine completed [facility] 02/08/2024 16:28:52 0 procedure on knee completed [facility] 02/08/2024 16:42:10 Imaging Results None recorded. Procedure Notes None recorded. Medical Equipment None Reported. Allergies Allergen ID Allergen Name Allergen Category Reaction Reaction Severity Criticality Documentation Date Start Date Code Code System Note Provider Name and Address Organization Details Recorded Time 36457 latex environme nt,medica tion Not available Not available Not available 10/04/2020 46949 91 RxNorm Comme nt: [facility]at [facility]; Not Available [facility] 0 14:18:02 57905 Substance with sulfonami de structure and antibacte rial mechanism of action (substanc e) medicatio n Not available Not available Not available 10/04/2020 53561 8003 SNOMED Comme nt: Locat [facility]: [facility]; Not Available [facility] 0 14:18:02 18564 codeine medicatio n Not available Not available Not available 10/04/2020 2670 RxNorm Comme nt: Locat ion: [facility]; Not Available [facility] 0 14:18:02 Medications Name Sig Start Date Stop Date Status Note LastModified by Organization Details LastModified Time amoxicill in 500 mg capsule TAKE ONE CAPSULE BY MOUTH FOUR TIMES DAILY UNTIL ALL TAKEN 02/07 completed Not Available Not Available Not Available furosemid e 10 mg/mL injection solution inject 2 millilit er by intraven ous route every day slowly 02/07 completed Prescrib ed Elsewher e: Yes [facility] By: isaías Murray ncounter DateTime : 06/01/20 18 01:15:00 PM Not Available Not Available Not Available prednison e 10 mg tablet 02/07 completed Not Available Not Available Not Available Centrum Silver tablet active Prescrib ed Elsewher e: Yes [facility]oca [facility] By: diane Murray ncounter DateTime : 02/24/20 12 10:30:00 AM Not Available Not Available Not Available flecainid e 150 mg tablet active Not Available Not Available Not Available cetirizin e 10 mg tablet Take 1 tablet every day by oral route. active Not Available Not Available No t Available Lotrisone 1 %-0.05 % topical cream apply by topical route 2 times every day for 2 weeks to the affected and surround ing areas of skin in the morning and evening 06/14 completed Prescrib ed Elsewher e: No [facility] By: lbillhar tz Encou nter DateTime : 06/01/20 18 01:15:00 PM Not Available Not Available Not Available prednison e 5 mg tablet 02/07 completed Not Available Not Available Not Available mycopheno late mofetil 500 mg tablet active Not Available Not Available Not Available pantopraz ole 40 mg tablet,de layed release active Not Available Not Available Not Available levothyro xine 125 mcg tablet TAKE 1 TABLET BY MOUTH DAILY 02/07 completed Not Available Not Available Not Available hydrochlo rothiazid e 12.5 mg capsule take 2 capsule by oral route every day active Not Available Not Available No t Available gabapenti n 300 mg capsule active Not Available Not Available Not Available irbesarta n 75 mg tablet take 1 tablet by oral route every day 02/07 completed Prescrib ed Elsewher e: Yes Loca tion: Cristhian murray [facility] odify By: isaías vang DateTime : 06/01/20 18 01:15:00 PM Not Available Not Available Not Available furosemid e 20 mg tablet active Not Available Not Available Not Available gabapenti n 100 mg capsule take 3 capsule by oral route 3 times every day 02/07 completed Prescrib ed Elsewher e: Yes Loca tion: Cristhian murray [facility] odify By: isaías pascualuntaddison DateTime : 06/01/20 18 01:15:00 PM Not Available Not Available Not Available albuterol sulfate HFA 90 mcg/actua tion aerosol inhaler INHALE 1 PUFF BY MOUTH EVERY 4 HOURS NEEDED FOR SHORTNES S OF BREATH OR WHEEZING active Not Available Not Available No t Available doxycycli ne hyclate 100 mg tablet TAKE 1 TABLET BY MOUTH TWICE DAILY 02/07 completed Not Available Not Available Not Available ramipril 1.25 mg capsule take 1 capsule by oral route every day 06/01 completed Prescrib ed Elsewher e: Yes Loca tion: Cristhian murray [facility] odify By: isaías pascualunter DateTime : 02/23/20 12 10:45:46 PM Not Available Not Available Not Available irbesarta n 300 mg tablet active Not Available Not Available Not Available levothyro xine 112 mcg tablet TAKE 1 TABLET BY MOUTH DAILY 02/07 completed Not Available Not Available Not Available amoxicill in 875 mg-potass ium clavulana te 125 mg tablet TAKE 1 TABLET BY MOUTH EVERY 12 HOURS FOR 7 DAYS FOR COPD EXACERBA TION 02/07 completed Not Available Not Available Not Available amoxicill in 500 mg-potass ium clavulana te 125 mg tablet TAKE 1 TABLET BY MOUTH EVERY 12 HOURS FOR 5 DAYS active Not Available Not Available No t Available Restasis 0.05 % eye drops in a dropperet te instill 1 drop by ophthalm ic route every 12 hours into affected eye(s) 06/01 completed Prescrib ed Elsewher e: Yes Loca tion: Cristhian [facility] odify By: isaías vang DateTime : 02/24/20 12 10:30:00 AM Not Available Not Available Not Available Metamucil 0.52 gram capsule 06/01 completed Prescrib ed Elsewher e: Yes Loca tion: Cristhian murray [facility] odify By: isaías vang DateTime : 02/24/20 12 10:30:00 AM Not Available Not Available Not Available rosuvasta tin 5 mg tablet TAKE 1 TABLET BY MOUTH DAILY active Not Available Not Available No t Available metoprolo l tartrate 25 mg tablet active Not Available Not Available Not Available nitrofura ntoin monohydra te/macroc rystals 100 mg capsule TAKE 1 CAPSULE BY MOUTH EVERY 12 HOURS FOR 7 DAYS active Not Available Not Available No t Available duloxetin e 20 mg capsule,d elayed release take 3 Capsule by oral route every day 02/07 completed Prescrib ed Elsewher e: Yes Loca tion: Cristhian murray [facility] odify By: isaías pascualunter DateTime : 06/01/20 18 01:15:00 PM Not Available Not Available Not Available duloxetin e 30 mg capsule,d elayed release active Not Available Not Available Not Available aspirin active Not Available Not Avail able Not Available Protonix 40 mg granules delayed-r elease packet take 1 packet by oral route every day mixed in 1 teaspoon ful of applesau ce or apple juice active Prescrib ed Elsewher e: Yes Loca tion: Cristhian murray [facility] odify By: isaías vang DateTime : 06/01/20 18 01:15:00 PM Not Available Not Available Not Available Align (B.infant is) 4 mg capsule 02/23 completed Prescrib ed Elsewher e: Yes Loca tion: Cristhian [facility] odify By: diane schmidter DateTime : 02/23/20 12 10:45:46 PM Not Available Not Available Not Available Tirosint 13 mcg capsule take 1 capsule by oral route every day active Prescrib ed Elsewher e: Yes [facility]oca [facility] By: geovanna Cota ntaddison DateTime : 02/23/20 12 10:45:46 PM Not Available Not Available Not Available Dexilant 30 mg capsule, delayed release take 1 capsule by oral route every day 06/01 completed Prescrib ed Elsewher e: Yes Loca tion: [facility] odify By: isaías pascualunter DateTime : 02/23/20 12 10:45:46 PM Not Available Not Available Not Available Probiotic 10 billion cell capsule active Prescrib ed Elsewher e: Yes Loca tion: Cristhian [facility] odify By: isaías Murray ncounter DateTime : 06/01/20 18 01:15:00 PM Not Available Not Available Not Available All Day Allergy (cetirizi ne) [address] by Topical route every USE ASS NEEDED WITH INTERCOU RSE active Prescrib ed Elsewher e: Yes Loca tion: Cristhian Toure [facility] odify By: isaías pascualunter DateTime : 06/01/20 18 01:15:00 PM Not Available Not Available Not Available Breo Ellipta 100 mcg-25 mcg/dose powder for inhalatio n inhale 1 puff by inhalati on route every day at the same time each day active Prescrib ed Elsewher e: Yes Loca tion: Cristhian Toure [facility] odify By: isaías pascualunter DateTime : 06/01/20 18 01:15:00 PM Not Available Not Available Not Available Durlaza 162.5 mg capsule,e xtended release take 1 capsule by oral route every day at the same time each day active Prescrib ed Elsewher e: Yes Loca tion: Cristhian Toure [facility] odify By: isaías pascualunter DateTime : 06/01/20 18 01:15:00 PM Not Available Not Available Not Available Xhance 93 mcg/actua tion breath activated aerosol spray 1 spray by intranas al route 2 times every day in each nostril active Prescrib ed Elsewher e: Yes Loca tion: Cristhian Toure [facility] odify By: isaías pascualunter DateTime : 06/01/20 18 01:15:00 PM Not Available Not Available Not Available Vitals Date Recorded Body height Body mass index (BMI) Body weight Systolic blood pressure Diastolic blood pressure Provider Name and Address Organization Details Last Updated DateTime 02/08/2024 160.02 cm 33.3 kg/m2 65084.37 g 121 mm[Hg] 76 mm[Hg] Deanna Yossi [facility] 14:42:10 Social History Question Answer Notes LastModified by Organizat ion Details LastModified Time Tobacco Smoking Status Former Smoker stopped 10 yr ago Deanna Sy null, [facility] 02/08/2024 16:27:46 What Is Your Level Of Alcohol Consumption? None [facility] not available 02/08/2024 In The 14 Days Before Symptom Onset, Have You Had Close Contact With A Laboratory-confir med COVID-19 While That Case Was Ill? No [facility] Information not available 02/08/2024 In The 14 Days Before Symptom Onset, Have You Had Close Contact With A Person Who Is Under Investigation For COVID-19 While That Person Was Ill? No [facility] Information not available 02/08/2024 Have You Been To An Area Known To Be High Risk For COVID-19? No [place] [id number] Information not available 02/08/2024 Sex: Unknown Functional Status None recorded. Mental Status None recorded. Family History Nothing Reported Notes:Daughter: BRITNEY mai history of Ovarian cancer, Family history of Hypertension, Family history of Asthma, Family history of ovarian cyst, Family history of Diabetes mellitus, Family history of prolapsed uterus, Family history of anemia, Family history of Congenital heart disease, Family history of Cancer, breast, Family history of pulmonary embolism, Family history of Cancer, lung Mother: Cancer, lung, Depression Paternal aunt: Cancer, breast, Ovarian cancer Medical History Condition Response Autoimmune disease Y Pulmonary (TB, Asthma) Y Other Y High Cholesterol Y Heart Disease Y Fibromyalgia Y Thyroid Problems Y Hypertension Y Asthma Y Gynecological History Statement/Question Response Date of Last Mammogram On BCP's at Conception? N STIs/STDs N HPV Vaccine N Colposcopy Age at First Child 22 Sexually Active? Y Date of DEXA bone scan Age of first menstrual cycle 9 Date of Last Pap Smear Sexual Problems? N Obstetrics History GPAL:G 3 P 0 0 0 3 Type Value Living 3 Total 3 Past Encounters Encounter ID Performer Location Encounter Start Date Encounter Closed Date Diagnosis/Indication Diagnosis SNOMED-CT Code Diagnosis ICD10 Code Diagnosis Note [id number] JEFFERY [facility] [place] [address] [address] 02/08/2024 14:16:47 02/09/2024 10:24:32 Urinary symptoms 851779926 R39.9 Urge incon tinence of urine 70315395 N39.41 Detailed health hx obtained and reviewed todaydiscu ssed current medication regimen/di uretics which can contribute to urinary frequencyU A/cx ordered, unable to leave sample at appointmen t, [facility]t [facility] (going today to have labs done already)li roxy intake of bladder irritants (caffeine, carbonatio n, citrus, spicy foods, etc)review ed management options pending negative urine cx: pelvic floor physical therapy, urogyne consult. She is going to consider her options - will reach out to pt with cx resultenco uraged to schedule WWE Time spent in visit is a total of 30 mins with at least 50% of visit consisting of counseling and review of plan of care. Prolapse o f female genital organs 60991645 N81.9 Health Concerns Section Related Observation LastModified by Organization Detai ls LastModified Time None Recorded Concern Status LastModified by Organization Details LastModified Time None Recorded Advance Directives Directive None Recorded Payers Encounter Date Sequence Insurance Name Policy Number Policy Romo Covered Member ID Romo Member ID Guarantor Name 02/08/2024 1 [facility] (MEDICARE REPLACEMENT/A DVANTAGE - HMO) [id number] Precious Grant [id number] Precious Grant Notes Date Note Type Note Provider Name and Address Organization Details Recorded Time 02/08/2024 text/html 68yo [id number] ents for evaluation of urinary frequency and incontinencefor the past 3 weeks has noticed leaking of urine. Mostly when feeling the urge to urinate, will sometimes leak prior to making it to restroom. Urinating more frequently at night.Drinks about 32oz of water per day and 2 glasses of milk, no caffeine neg flank painsneg burningneg n/v/fneg flu-like symptomsneg vaginal symptoms postmenopausal since age 54last pap 2018 : normal per ptno h/o abnormal papsSA rarely with spouse medical hx: asthma, lupus, graves, HTN, hyperlipidemia, crest syndrome, interstitial lung disease JEFFERY Carter [address] [place], [address], [facility] 02/08/2024 17:50:30 OBGyn Episode Ob Episode Information Episode Created Date Number of Fetuses Patient Bloodtype Patient rh Status Prepregnancy Weight lbs Domestic Partner Domestic Partner Phone Father Name Risk And Compliance Analytics Director Status 02/08/20 24 1 CLOSED Fetus Data First Name Last Name Admitted to NICU Weight (g) Sex Living Outcome Pediatric Complications Fetus ID Race Codes Race Delivery Type Full Term [id number] Vaginal Delivery Cassius Calculation Initial Cassius Date Initial Exam Date Initial Exam Provider Initial Ultrasound Date Last Menstrual Period Date Ultra Sound Weeks Gestation 0 Eighteen To Twenty Week Cassius Update Ultra Sound Date Fundal Height At Umbil Quickening Date Ultra Sound Latest Weeks Gestation Final Cassius Confirmed By Final Cassius Confirmed Date Final Cassius Date Ultra Sound Latest Days Gestation 0 0 Menstrual History Last Menstrual Date Menses Monthly On Bcp Conception Prior Menses Frequency Hcg Plus Date Menarche Onset Age Delivery Information Delivery Date Delivery Type Labor Anesthesia Weeks Gestation Incision Type Labor Labor Length Hrs Delivered By Post Complications Tubal Sterilization Discharge Date Comments 1 Discharge Information Feeding Method Contraceptive Method Maternal HG B and HCT Levels Ob Episode Information Episode Created Date Number of Fetuses Patient Bloodtype Patient rh Status Prepregnancy Weight lbs Domestic Partner Domestic Partner Phone Father Name Risk And Compliance Analytics Director Status 02/08/20 24 1 CLOSED Fetus Data First Name Last Name Admitted to NICU Weight (g) Sex Living Outcome Pediatric Complications Fetus ID Race Codes Race Delivery Type Full Term [id number] Vaginal Delivery Cassuis Calculation Initial Cassius Date Initial Exam Date Initial Exam Provider Initial Ultrasound Date Last Menstrual Period Date Ultra Sound Weeks Gestation 0 Eighteen To Twenty Week Cassius Update Ultra Sound Date Fundal Height At Umbil Quickening Date Ultra Sound Latest Weeks Gestation Final Cassius Confirmed By Final Cassius Confirmed Date Final Cassius Date Ultra Sound Latest Days Gestation 0 0 Menstrual History Last Menstrual Date Menses Monthly On Bcp Conception Prior Menses Frequency Hcg Plus Date Menarche Onset Age Delivery Information Delivery Date Delivery Type Labor Anesthesia Weeks Gestation Incision Type Labor Labor Length Hrs Delivered By Post Complications Tubal Sterilization Discharge Date Comments 9 Discharge Information Feeding Method Contraceptive Method Maternal HG B and HCT Levels Ob Episode Information Episode Created Date Number of Fetuses Patient Bloodtype Patient rh Status Prepregnancy Weight lbs Domestic Partner Domestic Partner Phone Father Name Risk And Compliance Analytics Director Status 02/08/20 24 1 CLOSED Fetus Data First Name Last Name Admitted to NICU Weight (g) Sex Living Outcome Pediatric Complications Fetus ID Race Codes Race Delivery Type Full Term [id number] Vaginal Delivery Cassius Calculation Initial Cassius Date Initial Exam Date Initial Exam Provider Initial Ultrasound Date Last Menstrual Period Date Ultra Sound Weeks Gestation 0 Eighteen To Twenty Week Cassius Update Ultra Sound Date Fundal Height At Umbil Quickening Date Ultra Sound Latest Weeks Gestation Final Cassius Confirmed By Final Cassius Confirmed Date Final Cassius Date Ultra Sound Latest Days Gestation 0 0 Menstrual History Last Menstrual Date Menses Monthly On Bcp Conception Prior Menses Frequency Hcg Plus Date Menarche Onset Age Delivery Information Delivery Date Delivery Type Labor Anesthesia Weeks Gestation Incision Type Labor Labor Length Hrs Delivered By Post Complications Tubal Sterilization Discharge Date Comments Discharge Information Feeding Method Contraceptive Method Maternal HG B and HCT Levels
--- OUTSIDE RECORDS SUMMARY | 2025-02-08 13:16 | XMS_ITS | CONTINUITY OF CARE DOCUMENT ---
Author Name juan martinez Address Unknown Organization [facility] Office Address [address] [place] [address] Phone [phone] Care Team Providers Care Contingents Supervisor Name Role Phone juan martinez Unavailable Unavailable
--- OUTSIDE RECORDS SUMMARY | 2025-02-08 13:16 | XMS_ITS | Clinical Summary ---
Author Organization [facility] Address [address] [address] Phone Care Team Providers Care Boiler Erector Name Role Phone Unavailable Primary Care Provider Unavailabl e Medications pantoprazole (PROTONIX) 40 MG Tablet Delayed Response TAKE 1 TABLET BY MOUTH DAILY. 30 Tab 6 05/05/2017 Active Social History Tobacco Use Types Packs/Day Years Used Date Smoking Tobacco: Never Assessed Comments Unknown Sex and Gender Information Value Date Recorded Sex Assigned at Not on file Legal Sex Female 12:07 AM CDT Gender Identity Not on file Sexual Orientation Not on file Plan of Treatment Health Maintenance Due Date Last Done Comments DEXA Bone Density 1955 Hepatitis C Virus (HCV) Screening 1955 TdaP Immunization 1955 Colonoscopy 2000 Colorectal Cancer Screening 2000 Cologuard 2005 Immunochemical Fecal Occult Blood 2005 Mammogram 2005 Pneumococcal Immunization (5 0+ years) (1 of 1 - PCV) 2005 Zoster Immunization (1 of 2) 2005 Influenza Immunization (#1) 2024 SARS-COV-2 Immunization ( - 2023-25 season) 2024 Respiratory Syncytial Virus (RSV) Immunization (Adult) (1 - 1-dose 75+ series) 2030 Hepatitis B Immunization Aged Out No longer eligible based on patient's age to complete this topic Meningococcal Immunization (ACWY) Aged Out No longer eligible based on patient's age to complete this topic Rotavirus Immunization Aged Out No lo nger eligible based on patient's age to complete [place] [address] MEDICARE C [employer]
--- OUTSIDE RECORDS SUMMARY | 2025-02-08 13:17 | XMS_ITS | Encounter Summary ---
Author Organization [facility] Address [address] Attn: Epic Prelude ADT [place] [address] Care Team Providers Care Basic Acoustic Analyst Name Role Phone Pranav Cohen MD Primary Care Provider [phone] Encounter Details Date Type Department Care Team (Late st Contact Info) Description 11/17/1990 Outpatient Historical Elton Gill MD [address] [facility]. 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
--- OUTSIDE RECORDS SUMMARY | 2025-02-08 13:17 | XMS_ITS | Encounter Summary ---
Author Organization [facility] Address [address] [facility] Attn: Epic Prelude ADT [place] [address] Care Team Providers Care Research Hydraulic Engineer Name Role Phone Pranav Cohen MD Primary Care Provider [phone] Encounter Details Date Type Department Care Team (Late st Contact Info) Description 01/17/1990 Outpatient Historical Elton Gill MD [address] [facility]. 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
--- OUTSIDE RECORDS SUMMARY | 2025-02-08 13:17 | XMS_ITS | Encounter Summary ---
Author Organization [facility] [employer] [facility] Address [address] [place] [address] Phone Care Team Providers Care Restoration Officer Name Role Phone Pranav Cohen MD Primary Care Provider Encounter Details Date Type Department Care Team (Latest Contact Info) Description 02/26/2023 Orders Only [facility] Scanning, Provider Social History Tobacco Use Types Packs/Day Years Used Date Smoking Tobacco: Former Cigarettes Smokeless Tobacco: Never Comments:Smoking History Pac ks/day: 0.75 Cigarettes Alcohol Use Standard Drinks/Week Comments No 0 (1 standard drink = 0.6 oz pur e alcohol) AUDIT-C Answer Date Recorded Q1: How often do you have a drink containing alc ohol? 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 Gender Identity Not on file Sexual Orientation Not on file documented as of this encounter Plan of Treatment Not on file documented as of this encounter Procedures Procedure Name Priority Date/Time Associated Diagnosis Comments CARDIOLOGY DOCUMENT SCAN 02/26/2023 documented in this encounter Results * CARDIOLOGY DOCUMENT SCAN (02/26/2023) Anatomical Region Laterality Modality Other us Provider Scanning CV CARDIAC SERVICES PROCEDURES Final Result documented in this encounter Visit Diagnoses Not on filedocumented in this encounter Care Teams Restoration Officer Relationship Specialty Start Date End Date Pranav Cohen MD [address] [facility] [address] [place] [address] PCP - General 02/18/17 documented as of this encounter
--- OUTSIDE RECORDS SUMMARY | 2025-02-08 13:17 | XMS_ITS | Encounter Summary ---
Author Organization [facility] Address [address] [facility] Attn: Epic Prelude ADT [place] [address] Care Team Providers Care Shuttle Buggy Operator Name Role Phone Pranav Cohen MD Primary Care Provider [phone] Encounter Details Date Type Department Care Team (Late st Contact Info) Description 03/01/1990 Outpatient Historical Elton Gill MD [address] [facility]. 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
--- OUTSIDE RECORDS SUMMARY | 2025-02-08 13:17 | XMS_ITS | Encounter Summary ---
Author Organization [facility] Address [address] [place] [address] Phone Care Team Providers Care Farmworker Cranberry Name Role Phone Pranav Cohen MD Primary Care Provider Encounter Details Date Type Department Care Team (Late st Contact Info) Description 09/28/2024 Orders Only [facility] Pulmonary [address] [facility] 8th [place] [address] [place] [address] Prema Rehman MD [address] [place] [address] Social History Tobacco Use Types Packs/Day Years Used Date Smoking Tobacco: Former Cigarettes Smokeless Tobacco: Never Comments:Smoking History Pac ks/day: 0.75 Cigarettes Alcohol Use Standard Drinks/Week Comments No 0 (1 standard drink = 0.6 oz pur e alcohol) AUDIT-C Answer Date Recorded Q1: How often do you have a drink containing alcohol? Never 07/07/2024 Q2: How many drinks containi ng alcohol do you have on a typical day when you are drinking? Patient does not drink Q3: How often do you have si x or more drinks on one occasion? Never 07/07/2024 PHQ-2 Answer Date Recorded PHQ-2 Total Score (If total score is 3 or more points, staff should administer the PHQ-9) 2 07/03/2024 Personal Safety Answer Date Recorded Have you ever been in or are you currently in a harmful physical or emotional relationship or is someone making you feel afraid or unsafe? 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 08/24/2024 09/28/2024 documented as of this encounter Care Teams Farmworker Cranberry Relationship Specialty Start Date End Date Pranav Cohen MD [address] [facility] [address] [place] [address] PCP - General 02/18/17 documented as of this encounter
--- OUTSIDE RECORDS SUMMARY | 2025-02-08 13:17 | XMS_ITS | Encounter Summary ---
Author Organization [facility] Address [address] [facility] Attn: Epic Prelude ADT [place] [address] Care Team Providers Care Auditor In Charge Name Role Phone Pranav Cohen MD Primary Care Provider [phone] Encounter Details Date Type Department Care Team (Late st Contact Info) Description 02/15/1990 Outpatient Historical Elton Gill MD [address] [facility]. 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
--- OUTSIDE RECORDS SUMMARY | 2025-02-08 13:17 | XMS_ITS | Referral Summary ---
Author Organization [facility] [address] Address [address] [place] [address] Care Team Providers Care Template Reproduction Technician Name Role Phone Pranav Cohen MD Primary Care Provider Encounters Date Type Department Care Team Description 01/02/2025 11:30 AM CDT Office Visit [facility] Radiation Oncology [address] [facility] [place] [address] Ole Calderón MD PhD ILD (interstitial lung disease) (HCC) [J84.9] (Primary Dx) 01/02/2025 9:18 AM CDT - 01/02/2025 11:59 PM CDT Hospital Encounter [facility] [address] [place] [address] Ole Calderón MD PhD Lung mass Discharge Disposition: Discharge to home or self care 12/12/2024 Documentation [facility] Pulmonary [address] [facility] [address] [place] [address] [place] [id number] Deb Nye, CRAIG 12/12/2024 Orders Only [facility] Pulmonary [address] [facility] [address]th [place] [address] [place] [id number] Prema Rehman MD ILD (interstitial lung disease) (HCC) (Primary Dx); High risk medication use 11/10/2024 Documentation [facility] Pulmonary [address] [facility] [address]th [place] [address] [place] [address] Deb Nye RN 11/10/2024 Orders Only [facility] Pulmonary [address] [facility] Medicine 8th [place] [address] [place] [address] Prema Rehman MD ILD (interstitial lung disease) (HCC) (Primary Dx) from Last 3 Months Allergies Active Allergy Reactions Criticality Noted Date Comments Beta-Blockers (Beta-Adrenergic Blocking Agts) Swelling,Rash Medium 08/01/2018 Bupropion Rash,Vomiting Medium Wellbutrin Codeine Dizziness,Vomiting ,Other (See comments) Low 02/23/2012 codeine Propoxyphene Rash,Dizziness,Vom iting Medium Latex Blisters,Rash,Othe r (See comments) High 01/24/2025 latex Sulfa (Sulfonamide Antibiotics) Rash,Other (See comments) Medium 01/24/2025 Substance with sulfonamide structure and antibacterial mechanism of action (substance) Medications multivitamin with minerals (MY-VITALIFE) capsule one a day 0 0 3 Active albuterol HFA (PROVENTIL HFA) 90 mcg/actuation inhaler Take as directed 0 0 9 Active aspirin 81 mg chewable tablet Take 1 tablet (81 mg total) by mouth daily Active fluticasone (FLONASE) 50 mcg/actuation nasal spray Administer 1 spray into each nostril as needed Active vitamins A,C,E-zinc-shane er 7,160-113-100 lflv-oo-blkt tablet,delayed release (DR/EC) Take by mouth daily Active cetirizine 10 mg capsule Take by mouth daily Active irbesartan (AVAPRO) 300 mg tablet Take 1 tablet (300 mg total) by mouth nightly Active pantoprazole DR (PROTONIX) 40 mg EC tablet Take 1 tablet (40 mg total) by mouth daily Active DULoxetine DR (CYMBALTA) 30 mg capsule Take 1 capsule (30 mg total) by mouth daily 30 capsule 2 9 Active carboxymethylce llulos/glycerin (REFRESH OPTIVE OPHT) Administer into affected eye(s) Active levothyroxine (SYNTHROID) 112 mcg tablet 4 Active doxycycline 100 mg tablet Take 1 tablet/capsule (100 mg total) by mouth 4 Active treprostinil (TYVASO INHAL) Inhale Activ e furosemide (LASIX) 20 mg tabletIndicatio ns:Acute diastolic heart failure (HCC) TAKE 1 TABLET BY MOUTH DAILY 100 tablet 3 4 Active metoprolol tartrate (LOPRESSOR) 25 mg immediate release tablet TAKE 2 TABLETS BY MOUTH TWICE DAILY 400 tablet 3 4 Active flecainide (TAMBOCOR) 150 mg tablet TAKE ONE-HALF TABLET BY MOUTH TWICE DAILY 100 tablet 3 4 Active wqryhvau-frs-EJ -lycopen-lutein (Centrum Silver) 0.4 mg-300 mcg- 250 mcg tablet Take 1 tablet by mouth daily Active furosemide (LASIX) 40 mg tablet Take 1 tablet (40 mg total) by mouth daily 10 tablet 4 Active Additional Information Patient not taking.Reported on 01/02/2025 potassium chloride ER (KLOR-CON) 20 mEq CR tablet Take 2 tablets (40 mEq total) by mouth daily for 3 days 6 tablet 4 Active Additional Information Patient not taking.Reported on 01/02/2025 predniSONE (DELTASONE) 10 mg tablet Last doses are 11/09/24 5 Active predniSONE (DELTASONE) 5 mg tablet Take 1 tablet (5 mg) by mouth daily 30 tablet 3 5 Active gabapentin (NEURONTIN) 300 mg capsule TAKE 2 CAPSULES BY MOUTH 3 TIMES DAILY 600 capsule 2 5 Active mycophenolate mofetil (CELLCEPT) 500 mg tabletIndicatio ns:ILD (interstitial lung disease) (HCC) TAKE 3 TABLETS BY MOUTH TWICE DAILY 180 tablet 5 Active Active Problems Problem Noted Date Diagnosed Date Pulmonary hypertension 04/02/2023 Chronic hypoxemic respiratory failure 01/05/2022 History of smoking 01/05/2022 High risk medication use 01/05/2022 Closed fracture of proximal end of left humerus with delayed healing 05/21/2021 Hypertensive heart disease with heart failure S/P ablation of atrial flutter 05/01/2019 SVT (supraventricular tachycardia) 03/29/2019 Overview (03/29/2019): Added automatically from request for surgery [id number] BRCA negative 09/16/2018 Overview (03/29/2019): Overview: NEGATIVE. The patient underwent the [employer] my risk genetic testing for hereditary cancer syndromes due to an extensive maternal family history of premenopausal breast cancer and ovarian cancer. The patient tested negative for any deleterious mutations in all 28 genes that were tested. This testing included the genes responsible for HBOC, Vera syndrome, as well as most other common hereditary cancer syndromes. Family history of lymphoma 08/03/2018 Family history of malignant neoplasm of breast in relative diagnosed when younger than 45 years of age 1008/03/2018 Family history of ovarian cancer 08/03/2018 Genetic testing 08/03/2018 Preop cardiovascular exam 08/01/2018 Assessment & Plan (08/01/2018 10:33 AM CDT): She will undergo a elbow surgery as well as eye surgery. 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 Event monitor showed no atrial fibrillation. Continue to observe Assessment & Plan (02/01/2018 3:16 PM CDT): Happened in the setting of severe bilateral pneumonia and sepsis. Repeat event monitor shows no atrial fibrillation. Continue to observe. Palpitations 07/26/2017 Assessment & Plan (08/01/2018 10:31 AM CDT): On a previous event monitor there was evidence of atrial tachycardia and SVT. Palpitations are rare. Observe for now. Assessment & Plan (02/01/2018 3:17 PM CDT): On previous event monitor there was evidence of atrial tachycardia and SVT. Her palpitations are infrequent. Will observe for now. Advised to start treatment for sleep apnea. Assessment & Plan (11/01/2017 11:25 AM BURNT LIME DRAWER): On event monitor there is evidence of atrial tachycardia and SVT. No atrial fibrillation. Palpitations are infrequent. I offered patient to start some beta-blockers but we agreed that we will re-evaluate these after starting CPAP. Assessment & Plan (09/20/2017 9:31 AM BURNT LIME DRAWER): Event monitor shows brief episodes of supraventricular and atrial tachycardia. Continue to observe. Advised to cut down on soda. Likely will improve once she gets on CPAP. Assessment & Plan (07/26/2017 12:25 PM CDT): I will order 2 week event monitor to rule out atrial fibrillation. Her main risk factor for atrial fibrillation includes obesity, hypertension Exertional dyspnea 06/14/2017 Assessment & Plan (08/01/2018 10:32 AM CDT): Stress test was negative for ischemia. Right ventricular pressure was 32. She does have mild restrictive lung disease on pulmonary function test. Also dyspnea on exertion likely related to obesity, deconditioning as well as type 1 diastolic dysfunction. Assessment & Plan (02/01/2018 3:18 PM CDT): Likely related to obesity, deconditioning and she does have as well type 1 diastolic dysfunction. Stress test was negative for ischemia. Right ventricular pressure was 32. She does have restrictive lung disease on pulmonary function test. Advised to follow up with Pulmonary. Assessment & Plan (11/01/2017 11:25 AM BURNT LIME DRAWER): Stress test was negative for ischemia. Normal ejection fraction with type 1 diastolic dysfunction. She is deconditioned an obese as well. Right ventricular systolic pressure was normal at 32. There is evidence of restrictive lung disease on the pulmonary function test. Follow up with Pulmonary . Assessment & Plan (09/20/2017 9:32 AM BURNT LIME DRAWER): She follows up with Pulmonary regarding severe restrictive disease. She will be tested for sleep apnea Assessment & Plan (07/26/2017 12:25 PM CDT): Her echocardiogram looks unremarkable. Her recent pulmonary function test looks abnormal and she will be evaluated by Pulmonary. I recommend sleep study to rule out obstructive sleep apnea given that she is obese and she feels fatigue and tired. Assessment & Plan (06/14/2017 9:07 AM CDT): She is symptomatic and she does have multiple risk factors for coronary artery disease including long history of smoking, hypertension and hyperlipidemia. At this time I will suggest that we repeat a stress test with imaging. So I will order a nuclear exercise stress test. Also I will obtain an echocardiogram to rule out structural heart disease as possible cause for shortness of breath. I will suggest also that she gets pulmonary function test to rule out underlying COPD. Class 2 severe obesity with serious comorbidity and body mass index (BMI) of 38.0 to 38.9 in adult 06/14/2017 Assessment & Plan (02/01/2018 3:18 PM CDT): Advised about diet modification and regular exercise to help her lose weight. Assessment & Plan (11/01/2017 11:26 AM BURNT LIME DRAWER): Advised about the importance regular exercise and diet modification to lose weight. Assessment & Plan (09/20/2017 9:41 AM BURNT LIME DRAWER): Advised about regular exercise and diet modification to help her lose weight. Assessment & Plan (06/14/2017 9:09 AM CDT): Will advise patient to lose weight once we rule out ischemia for sure. Advised at least diet modification Nonspecific chest pain 06/14/2017 Assessment & Plan (08/01/2018 10:32 AM CDT): Chest pain since she was in her 20s. Negative exercise echo stress test for ischemia. Continue to observe. Assessment & Plan (02/01/2018 3:18 PM CDT): Chest pain since she was in her 20s. Negative exercise echo stress test for ischemia. Continue to observe. Assessment & Plan (09/20/2017 9:31 AM BURNT LIME DRAWER): Resolved. Negative Lexiscan nuclear test for ischemia Assessment & Plan (07/26/2017 12:24 PM CDT): Negative exercise nuclear stress test for ischemia. Continue medical management. Assessment & Plan (06/14/2017 9:08 AM CDT): Suggest to repeat the stress test with imaging to evaluate for ischemia Knee pain 07/12/2015 Overview (01/22/2017): Knee pain Arthralgia 03/03/2014 Overview (01/22/2017): Joint pain Weight decreased 03/03/2014 Overview (01/22/2017): Weight loss Basedow's disease 03/03/2014 Overview (01/22/2017): Graves disease Memory impairment 03/03/2014 Overview (01/22/2017): Memory deficit Muscle pain 12/01/2012 Overview (01/21/2017): Myalgia Gastroesophageal reflux disease 12/01/2012 Overview (01/22/2017): GERD (gastroesophageal reflux disease) Fatigue 05/04/2012 Overview (01/22/2017): Fatigue Abnormal weight loss 02/24/2012 Overview (01/24/2025): Loss of weight;Recorded Elsewhere: No Location: [facility] Source: EHR Chronic: N Practice ID: [id number] Billable Time: 10:30:00 AM Disorder of bone and articular cartilage 012 Overview (01/24/2025): Disorder of bone and cartilage, unspecified;Recorded Elsewhere: No Location: [facility] Source: EHR Chronic: N Practice ID: [id number] Billable Time: 10:30:00 AM Female genital symptoms 02/24/2012 Overview (01/24/2025): Unspecified symptom associated with female genital organs;Recorded Elsewhere: No Location: [facility] Source: EHR Chronic: N Practice ID: [id number] Billable Time: 10:30:00 AM ILD (interstitial lung disease) Resolved Problems Problem Noted Date Diagnosed Date Resolved Date Acute diastolic heart failure 05/01/2019 10/30/2019 Hypertension 12/01/2012 10/30/2019 Overview (01/22/2017): Hypertension Assessment & Plan (08/01/2018 10:32 AM CDT): Blood pressure is controlled. Continue current treatment Assessment & Plan (02/01/2018 3:19 PM CDT): Blood pressure is well controlled. Continue to observe. Assessment & Plan (11/01/2017 11:27 AM BURNT LIME DRAWER): Blood pressure is controlled. Continue current medications. Assessment & Plan (09/20/2017 9:31 AM BURNT LIME DRAWER): Blood pressure is controlled. Continue current medications Assessment & Plan (07/26/2017 12:26 PM CDT): Blood pressure is controlled. Continue current meds Assessment & Plan (06/14/2017 9:09 AM CDT): Controlled. Continue current medications Immunizations Immunization Administration Dates Next Due Influenza, Quadrivalent, Hig h Dose, Preservative Free, Intrr 08/26/2021 [employer] SARS-CoV-2 Vaccination 12/20/2020 Social History Tobacco Use Types Packs/Day Years Used Date Smoking Tobacco: Former Cigarettes Smokeless Tobacco: Never Tobacco Cessation:Counseling Given: Not Answered Comments:Smoking History Packs/day: 0.75 Cigarettes Alcohol Use Standard Drinks/Week Comments [...] on file Legal Sex Female 9:37 AM BURNT LIME DRAWER Gender Identity Not on file Sexual Orientation Not on file Last Filed Vital Signs Vital Sign Reading Time Taken Comments Blood Pressure 154/76 01/02/2025 10:59 AM CDT Pulse 77 01/02/2025 10:59 AM CDT Temperature 36.3 C (97.3 F) 11/09/2024 4:06 PM BURNT LIME DRAWER Respiratory Rate 18 11/09/2024 4:06 PM BURNT LIME DRAWER Oxygen Saturation 96% 01/02/2025 10: 59 AM CDT 7 L O2 NC Inhaled Oxygen Concentration - - Weight 92.3 kg (203 lb 6.4 oz) 01/03/20 10:59 AM CDT Height 163.8 cm (5' 4.5 ) 11/09/2024 4:06 PM BURNT LIME DRAWER Body Mass Index 34.37 11/09/2024 4:06 PM BURNT LIME DRAWER Plan of Treatment Not on file Procedures Procedure Name Priority Date/Time Associated Diagnosis Comments CT CHEST W CONTRAST Schedule Routine, Read Routine (OP Routine) 01/02/2025 10:03 AM CDT Lung mass POCT CREATININE - DEVICE Routine 01/02/2025 9:51 AM CDT from Last 3 Months Results * CT chest with contrast (01/02/2025 10:03 AM CDT) Anatomical Region Laterality Modality Body N/A Computed Tomogra phy 01/02/2025 10:1 5 AM CDT Impressions 01/02/2025 10:15 AM CDT 1. Unchanged right upper lobe subpleural pulmonary nodule which is suspicious for primary lung malignancy. 2. No significant interval change in findings of connective tissue disease related interstitial lung disease. Electronically signed by: Gabriel Gay M.D. Narrative 01/02/2025 10:15 AM CDT EXAMINATION: Computed tomography of the chest with intravenous contrast HISTORY: Lung mass, interstitial lung disease TECHNIQUE: Transaxial computed tomographic images of the chest were obtained with intravenous contrast according to the standard protocol after the uneventful administration of 70 mL Opti-Ray 350 intravenous contrast. COMPARISON: 09/28/2024 FINDINGS: Trachea is normal in caliber. Mediastinal lymph nodes are again seen which were not FDG avid on the recent PET. These lymph nodes appear not significantly changed from prior. Hilar lymphadenopathy is again seen, also likely reactive. Right hilar lymph node measures up to 2.3 cm. Left hilar lymph node measures 1.2 cm short axis. No pericardial effusion. Calcified bilateral breast implants. No axillary lymphadenopathy. No supraclavicular lymphadenopathy. Status post cholecystectomy. The imaged upper abdomen is otherwise unremarkable. No aggressive bone lesion. Again seen is a subpleural right upper lobe pulmonary nodule which measures approximately 1.8 x 1.6 cm, not significant changed from prior. There is no pleural effusion or pneumothorax. There are groundglass opacities that are somewhat lower lung predominant. Bronchiectasis which is lower lung predominant again seen. Reticulation again noted. No definite honeycombing. The extent of the parenchymal lung abnormality is not significantly changed from prior. Procedure Note Gabriel Gay MD - 01/02/2025 EXAMINATION: Computed tomography of the chest with intravenous contrast HISTORY: Lung mass, interstitial lung disease TECHNIQUE: Transaxial computed tomographic images of the chest were obtained with intravenous contrast according to the standard protocol after the uneventful administration of 70 mL Opti-Ray 350 intravenous contrast. COMPARISON: 09/28/2024 FINDINGS: Trachea is normal in caliber. Mediastinal lymph nodes are again seen which were not FDG avid on the recent PET. These lymph nodes appear not significantly changed from prior. Hilar lymphadenopathy is again seen, also likely reactive. Right hilar lymph node measures up to 2.3 cm. Left hilar lymph node measures 1.2 cm short axis. No pericardial effusion. Calcified bilateral breast implants. No axillary lymphadenopathy. No supraclavicular lymphadenopathy. Status post cholecystectomy. The imaged upper abdomen is otherwise unremarkable. No aggressive bone lesion. Again seen is a subpleural right upper lobe pulmonary nodule which measures approximately 1.8 x 1.6 cm, not significant changed from prior. There is no pleural effusion or pneumothorax. There are groundglass opacities that are somewhat lower lung predominant. Bronchiectasis which is lower lung predominant again seen. Reticulation again noted. No definite honeycombing. The extent of the parenchymal lung abnormality is not significantly changed from prior. IMPRESSION: 1. Unchanged right upper lobe subpleural pulmonary nodule which is suspicious for primary lung malignancy. 2. No significant interval change in findings of connective tissue disease related interstitial lung disease. Electronically signed by: Gabriel Gay M.D. Ole Calderón MD PhD IMG CT PROCEDURES Final Result * POCT creatinine (01/02/2025 9:51 AM CDT) Creatinine POC 0.7 0.6 - 1.1 mg/dL Blood 01/02/2025 9:51 AM CDT 01/02/2025 9:51 AM CDT Ole Calderón MD PhD LAB POCT ORDERABLE S - DEVICE Final Result [facility] Department [place] [address] from Last [address] [place] [address] [facility] MEDICARE ADVANTAGE [address]AGE [address] MEDICARE ADVANTAGE Advance Directives For more information, please contact: [phone] * Full Code (Latest Code Status on File) Date Activated Date Inactivated Comments 07/07/2024 10:49 AM 07/07/2024 4:49 PM Care Teams Template Reproduction Technician Relationship Specialty Start Date End Date Pranav Cohen MD [address] [facility] [address] [place] [id number] PCP - General 02/18/17
--- OUTSIDE RECORDS SUMMARY | 2025-02-08 13:17 | XMS_ITS | Encounter Summary ---
Author Organization [facility] Address [address] [facility] Attn: Epic Prelude ADT [place] [address] Care Team Providers Care Japanese Interpreter Name Role Phone Pranav Cohen MD Primary Care Provider [phone] Encounter Details Date Type Department Care Team (Late st Contact Info) Description 06/23/1990 Outpatient Historical Elton Gill MD [address] [facility] 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
--- OUTSIDE RECORDS SUMMARY | 2025-02-08 13:17 | XMS_ITS | Encounter Summary ---
Author Organization [facility] Address [address] [facility] Attn: Epic Prelude ADT [place] [address] Care Team Providers Care House Nurse Name Role Phone Pranav Cohen MD Primary Care Provider [phone] Encounter Details Date Type Department Care Team (Late st Contact Info) Description 03/30/1991 Outpatient Historical Elton Gill MD [address] [facility]. 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
--- OUTSIDE RECORDS SUMMARY | 2025-02-08 13:17 | XMS_ITS | Encounter Summary ---
Author Organization [facility] Address [address] [facility] Attn: Epic Prelude ADT [place] [address] Care Team Providers Care Overhead Worker Name Role Phone Pranav Cohen MD Primary Care Provider Encounter Details Date Type Department Care Team (Late st Contact Info) Description 1990 Outpatient Historical Elton Gill MD [address] [facility]. 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
--- OUTSIDE RECORDS SUMMARY | 2025-02-08 13:17 | XMS_ITS | Encounter Summary ---
Author Organization [facility] Address [address] [facility] Attn: Epic Prelude ADT GAR[place] [address] Care Team Providers Care Cfo Controller Name Role Phone Pranav Cohen MD Primary Care Provider [phone] Encounter Details Date Type Department Care Team (Late st Contact Info) Description 05/20/1990 Outpatient Historical Elton Gill MD [address] [facility]. [facility] [address] [place] [address] Social History Tobacco Use Types Packs/Day Years Used Date Smoking Tobacco: Never Assessed Comments Unknown Sex and Gender Information Value Date Recorded Sex Assigned at Not on file Legal Sex Female 5:10 AM GARAGE HAND Gender Identity Not on file Sexual Orientation Not on file documented as of this encounter Plan of Treatment Not on file documented as of this encounter Visit Diagnoses Not on filedocumented in this encounter Care Teams Cfo Controller Relationship Specialty Start Date End Date Pranav Cohen MD [address] [place] [address] PCP - General Family Practice 09/16/18 documented as of this encounter
--- OUTSIDE RECORDS SUMMARY | 2025-02-08 13:17 | XMS_ITS | Encounter Summary ---
Author Organization [facility] Address [address] [facility] Attn: Epic Prelude ADT [place] [address] Care Team Providers Care Upper Shaper Name Role Phone Pranav Cohen MD Primary Care Provider [phone] Encounter Details Date Type Department Care Team (Late st Contact Info) Description 09/20/1990 Outpatient Historical Elton Gill MD [address] [facility]. 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
--- OUTSIDE RECORDS SUMMARY | 2025-02-08 13:17 | XMS_ITS | Encounter Summary ---
Author Organization [facility] Address [address] [facility] Attn: Epic Prelude ADT [place] [address] Care Team Providers Care Sports Physiotherapist Name Role Phone Pranav Cohen MD Primary Care Provider [phone] Encounter Details Date Type Department Care Team (Late st Contact Info) Description 01/20/1991 Outpatient Historical Elton Gill MD [address] [facility]. 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
--- OUTSIDE RECORDS SUMMARY | 2025-02-08 13:17 | XMS_ITS | Clinical Summary ---
Author Organization [facility] [address] Address [address] [place] [address] Care Team Providers Care Antique Clock Repairer Name Role Phone Pranav Cohen MD Primary Care Provider Allergies Active Allergy Reactions Criticality Noted Date [...] as needed Active vitamins A,C,E-zinc-shane er 7,160-113-100 cboj-rv-jpgv tablet,delayed release (DR/EC) Take by mouth daily [...] TWICE DAILY 100 tablet 3 4 Active toqcljxc-jub-BC -lycopen-lutein (Centrum Silver) 0.4 mg-300 mcg- 250 [...] (03/29/2019): Added automatically from request for surgery [id number] BRCA negative 09/16/2018 Overview (03/29/2019): Overview: NEGATIVE. The patient underwent the [place] my risk genetic testing for hereditary cancer [...] Disorder of breast, unspecified;Recorded Elsewhere: No Location: [facility] Source: EHR Chronic: N Practice ID: [id number] [...] apnea. Assessment & Plan (11/01/2017 11:25 AM ELDERLY COMPANION): On event monitor there is evidence of atrial tachycardia and SVT. No atrial fibrillation. Palpitations are infrequent. I offered patient to start some beta-blockers but we agreed that we will re-evaluate these after starting CPAP. Assessment & Plan (09/20/2017 9:31 AM ELDERLY COMPANION): Event monitor shows brief episodes of supraventricular [...] Pulmonary. Assessment & Plan (11/01/2017 11:25 AM ELDERLY COMPANION): Stress test was negative for ischemia. Normal ejection fraction with type 1 diastolic dysfunction. She is deconditioned an obese as well. Right ventricular systolic pressure was normal at 32. There is evidence of restrictive lung disease on the pulmonary function test. Follow up with Pulmonary . Assessment & Plan (09/20/2017 9:32 AM ELDERLY COMPANION): She follows up with Pulmonary regarding severe [...] weight. Assessment & Plan (11/01/2017 11:26 AM ELDERLY COMPANION): Advised about the importance regular exercise and diet modification to lose weight. Assessment & Plan (09/20/2017 9:41 AM ELDERLY COMPANION): Advised about regular exercise and diet modification [...] observe. Assessment & Plan (09/20/2017 9:31 AM ELDERLY COMPANION): Resolved. Negative Lexiscan nuclear test for ischemia [...] (01/24/2025): Loss of weight;Recorded Elsewhere: No Location: [facility] Source: EHR Chronic: N Practice ID: [id number] Billable Time: 10:30:00 AM Disorder of bone and articular cartilage 012 Overview (01/24/2025): Disorder of bone and cartilage, unspecified;Recorded Elsewhere: No Location: [facility] Source: EHR Chronic: N Practice ID: [id number] Billable Time: 10:30:00 AM Female genital symptoms 02/24/2012 Overview (01/24/2025): Unspecified symptom associated with female genital organs;Recorded Elsewhere: No Location: [facility] Source: EHR Chronic: N Practice ID: [id number] [...] observe. Assessment & Plan (11/01/2017 11:27 AM ELDERLY COMPANION): Blood pressure is controlled. Continue current medications. Assessment & Plan (09/20/2017 9:31 AM ELDERLY COMPANION): Blood pressure is controlled. Continue current medications Assessment & Plan (07/26/2017 12:26 PM CDT): Blood pressure is controlled. Continue current meds Assessment & Plan (06/14/2017 9:09 AM CDT): Controlled. Continue current medications Encounters Date Type Department Care Team Description 01/02/2025 11:30 AM CDT Office Visit [facility] Radiation Oncology [address] [facility] [place] [address] Ole Calderón MD PhD ILD (interstitial lung disease) (HCC) [J84.9] (Primary Dx) 01/02/2025 9:18 AM CDT - 01/02/2025 11:59 PM CDT Hospital Encounter [facility] [address] [place] [address] Ole Calderón MD PhD Lung mass Discharge Disposition: Discharge to home or self care 12/12/2024 Documentation [facility] Pulmonary [address] [place] [address] [address]th [place] [address] Deb Nye, RN 12/12/2024 Orders Only [facility] Pulmonary [address] [place] [address] 8th [place] [address] [place] [address] Prema Rehman MD ILD (interstitial lung disease) (HCC) (Primary Dx); High risk medication use 11/10/2024 Documentation [facility] Pulmonary [address] [place] [address] 8th [place] [address] [place] [address] Deb Nye, RN 11/10/2024 Orders Only [facility] Pulmonary [address] [place] [address] 8th [place] [address] [place] [address] Prema Rehman MD ILD (interstitial lung disease) (HCC) (Primary Dx) from Last 3 Months Immunizations Immunization Administration Dates Next Due Influenza, Quadrivalent, Hig h Dose, Preservative Free, Intrr 08/26/2021 [employer] SARS-CoV-2 Vaccination 12/20/2020 Surgical History Surgery Date Site/Laterality Comments KNEE ARTHROSCOPY Arthroscopy knee CHOLECYSTECTOMY Cholecystectomy SHOULDER SURGERY Bilateral CERVICAL SPINE SURGERY KNEE ARTHROSCOPY W/ LATERAL RELEASE CATARACT EXTRACTION SPINE SURGERY TUBAL LIGATION ABLATION OF AFIB FLUTTER 04/17/2019 - 05/17/2019 Medical History Medical History Date Comments Hypercholesterolemia High choles terol; Comments: NILO 07/12/2015 - Hypertension Hypertension Disorder of thyroid Thyroid dise ase Hx Other Medical CERVICAL FUSION ; Comments: NILO 07/12/2015 - Hx Other Medical l EFT ROTATOR C UFF REPAIR; Comments: NILO 07/12/2015 - Palpitations GERD (gastroesophageal reflux disease) Asthma Cataract Emphysema of lung (HCC) Migraines Autoimmune disease Atrial fibrillation (HCC) Fibromyalgia Graves disease DVT (deep venous thrombosis) (HCC) Covid-19 08/2022 CHF (congestive heart failure) (HCC) Interstitial lung disease (HCC) Pulmonary hypertension (HCC) LYLY (obstructive sleep apnea) Connective tissue disease Family History Medical History Relation Name Comments Diabetes Father Malini Diabetes mellit us; Cancer Mother [place] Hypertension Mother [place] Hypertension; Lung cancer Mother Abigail Cancer, lung; Lupus Mother Abigail Lupus erythemat osus; Migraines Mother Abigail Migraines; Osteoporosis Mother [place] Osteoporosis; Other Mother Abigail unknown; Cause of : unknown Rashes / Skin problems Mother [place] Relation Name Status Comments Father Malini Mother [place] Alive Social History Tobacco Use Types Packs/Day [...] on file Legal Sex Female 9:37 AM ELDERLY COMPANION Gender Identity Not on file Sexual Orientation Not on file Obstetrics History Para Term AB IAB SAB Ectopic Multiple Livin g Live Births 3 Date Outcome GA Total Labor Labor/2nd/3rd Weight Sex Type Anes PTL Cintia A1 A5 Name Clin Last Filed Vital Signs Vital Sign Reading Time Taken Comments Blood Pressure 154/76 01/02/2025 10:59 AM CDT Pulse 77 01/02/2025 10:59 AM CDT Temperature 36.3 C (97.3 F) 11/09/2024 4:06 PM ELDERLY COMPANION Respiratory Rate 18 11/09/2024 4:06 PM ELDERLY COMPANION Oxygen Saturation 96% 01/02/2025 10: 59 AM CDT 7 L O2 NC Inhaled Oxygen Concentration - - Weight 92.3 kg (203 lb 6.4 oz) 01/03/20 25 10:59 AM CDT Height 163.8 cm (5' 4.5 ) 11/09/2024 4:06 PM ELDERLY COMPANION Body Mass Index 34.37 11/09/2024 4:06 PM ELDERLY COMPANION Plan of Treatment Health Maintenance Due Date Last Done Comments Colon Cancer Screening-Colonoscopy 1955 Hepatitis C Screening 1955 Osteoporosis Screening-Bone Density Scan 1955 DTaP/Tdap/Td Vaccine (1 - Tdap) 1966 Hepatitis B Screening 1973 Pneumococcal vaccine 65+ (1 of 2 - PCV) 1974 Zoster Vaccine (1 of 2) 1974 Breast Cancer Screening-Mammogram 06/08/2019 018 Well Visit 65+ 2020 Covid-19 Vaccine (2 - Jansse n risk series) 01/17/2021 12/20/2020 Influenza Vaccine (Season Ended) 2025 08/26/20 21 Depression Screening 07/03/2025 07/03/2024, 02/24/2022, 10/04/2018 Fall Risk Assessment 07/07/2025 07/07/2024, 06/26/2024, 02/24/2022 Procedures Procedure Name Priority Date/Time Associated Diagnosis [...] ORDERABLE S - DEVICE Final Result [facility] [place] [address] from Last [address] ADVANTAGE DR SOLIS [address] SOLIS [address] MEDIC[facility] ADVANTAGE [place] [id number] Advance Directives For more information, please contact: [phone] * Full Code (Latest Code Status on File) Date Activated Date Inactivated Comments 07/07/2024 10:49 AM 07/07/2024 4:49 PM Care Teams Antique Clock Repairer Relationship Specialty Start Date End Date Pranav Cohen MD [address] [facility] [address] [place] [address] PCP - General 02/18/17
--- OUTSIDE RECORDS SUMMARY | 2025-02-08 13:17 | XMS_ITS | Clinical Summary ---
Author Organization [facility] Address [address] [place] [address] Care Team Providers Care Corporate Real Estate Manager Name Role Phone Pranav Cohen MD Primary Care Provider [phone] Kay Martinez MD Unavailable [phone] Aurelio Brown MD Unavailable [phone] [facility],non-owned Affiliates and Associated Physician Practices is amultiple site organization consisting of ambulatory clinics and hospital sitesin [place], [place], [place] and [place]. This disclosure is being madepursuant to the Care Everywhere program and may not contain all information available regarding this patient. Last updated 18.[facility] Allergies Active Allergy Reactions Criticality Noted Date Comments Beta Adrenergic Blockers Swelling 05/23/2018 Bupropion Rash Medium Codeine Vomiting 02/23/2012 Latex Rash Medium Propoxyphene Vomiting darvocet Sulfa Drugs Rash Medium Medications * Be aware that medications may not be up to date on this document. Alwaysverify current medications with the patient. hydroCHLOROthia zide (HYDRODIURIL) 12.5 MG Take 12.5 mg by mouth once daily 3 Active pantoprazole EC (PROTONIX) 40 MG tablet Take 40 mg by mouth once daily 1 8 Active gabapentin (NEURONTIN) 300 MG capsule Take 300 mg by mouth 3 times daily 8 Active DULoxetine (CYMBALTA) 30 MG capsule Take 1 capsule by mouth once daily 8 Active DULoxetine (CYMBALTA) 60 MG capsule Take 1 capsule by mouth once daily 8 Active irbesartan (AVAPRO) 150 MG tablet Take 1 tablet by mouth once daily 8 Active Probiotic Product (ALIGN) 4 MG Take 1 capsule by mouth once daily 9 Active aspirin (ASPIRIN) 81 MG chew tablet Take 81 mg by mouth once daily Active fluticasone propionate (FLONASE) 50 MCG/ACT nasal spray [place] 1 spray into the nose once daily Active Multiple Vitamins-Minera ls (CENTRUM SILVER 50+WOMEN) TABS Take 1 tablet by mouth once daily 3 Active Multiple Vitamins-Minera ls (ICAPS AREDS 2 PO) Take 1 tablet by mouth once daily Active fluticasone-vikram anterol (BREO ELLIPTA) 100-25 MCG/INH inhaler Inhale 1 puff by mouth once daily Administer at the same time each day. Rinse mouth after using Active erythromycin (ROMYCIN) 5 MG/GM ophthalmic ointment Instill into both eyes 4 times daily Apply thin ribbon over incisions 3.5 g 3 9 Active levothyroxine (SYNTHROID) 100 MCG tablet Take 1 tablet by mouth once daily 9 Active Active Problems Problem Noted Date Diagnosed Date Paroxysmal A-fib 02/01/2018 Overview (09/26/2018): Overview: Last Assessment & Plan: Gain AFib happened in setting of severe bilateral pneumonia and sepsis. Event monitor showed no atrial fibrillation. Continue to observe Gastroesophageal reflux disease 12/01/2012 Overview (09/26/2018): Overview: GERD (gastroesophageal reflux disease) Hypertension 12/01/2012 Overview (09/26/2018): Overview: Hypertension Last Assessment & Plan: Blood pressure is controlled. Continue current treatment Resolved Problems Problem Noted Date Diagnosed Date Resolved Date Dermatochalasis of both upper eyelids 10/25/2018 03/06/2019 Exposure keratopathy, bilateral 05/23/2018 03/06/2019 Retraction of lower eyelid 05/23/2018 0 03/06/2019 Lagophthalmos of eyelids of both eyes 05/23/2018 03/06/2019 Ptosis of both eyelids 05/23/201803/06 Social History Tobacco Use Types Packs/Day Years Used Date Smoking Tobacco: Former Cigarettes Q uit: 05/23/2015 Smokeless Tobacco: Never Alcohol Use Standard Drinks/Week Comments No 0 (1 standard drink = 0.6 oz pur e alcohol) Comments Unknown Sex and Gender Information Value Date Recorded Sex Assigned at Not on file 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 Gender Identity Not on file Sexual Orientation Not on file Last Filed Vital Signs Vital Sign Reading Time Taken Comments Blood Pressure 165/82 01/09/2019 5:25 PM CDT Pulse 89 01/09/2019 5:25 PM CDT Temperature 36.7 C (98 F) 01/09/2019 5:25 PM CDT Respiratory Rate 16 01/09/2019 5:25 PM CDT Oxygen Saturation 99% 01/09/2019 5:25 PM CDT Inhaled Oxygen Concentration - - Weight 103 kg (227 lb) 01/09/2019 2:18 PM CDT Height 165.1 cm (5' 5 ) 01/09/2019 2:18 PM CDT Body Mass Index 37.77 01/09/2019 2:18 PM CDT Plan of Treatment Health Maintenance Due Date Last Done Comments BONE DENSITY TESTING 1955 COLOGUARD (AGES 45-75) - COL ON CA SCREENING 1955 COLON MONITORING 1955 COLONOSCOPY - COLON CA SCREENING 1955 CT COLONOGRAPHY - COLON CA SCREENING 1955 Colorectal Cancer Screening 1955 FIT - COLON CA SCREENING 1955 FLEX SIG - COLON CA SCREENING 1955 HEPATITIS C SCREENING 03/19/1973 DTAP/TDAP/TD VACCINES (1 - Tdap) 1974 PNEUMOCOCCAL VACCINE 50+ (1 of 1 - PCV) 2005 ZOSTER VACCINE (1 of 2) 2005 MAMMOGRAM 12/27/2020 12/27/2018, 06/28/2018 SCREENING FOR DIABETES 01/09/2022 01/09/2019 LIPID TESTING 08/01/2023 08/01/2018 COVID-19 VACCINE (1 - 2023-2 5 season) 2024 DEPRESSION SCREENING 10/18/2024 INFLUENZA VACCINE (Season Ended) 2025 Respiratory Syncytial Virus (RSV) Vaccine Pt: or over 60 yrs (1 - 1-dose 75+ series) 2030 HEPATITIS B VACCINE Aged Out No longe r eligible based on patient's age to complete this topic HIB VACCINE Aged Out No longer eligi ble based on patient's age to complete this topic HPV VACCINE Aged Out No longer eligi ble based on patient's age to complete this topic MENINGOCOCCAL (Group B) VACCINE SHARED DECISION-MAKING Aged Out No longer eligible based on patient's age to complete this topic MENINGOCOCCAL GROUPS A/C/Y/W VACCINE Aged Out No longer eligible b ased on patient's age to complete this topic Medical Devices Implanted Type Area Art Framing Manager Device Identifier Shelf Expiration Date Model / Serial / Lot Shell Allogrft Sclera Tiss Whole Implanted:Qty: 1 on 09/26/2018 by Stefanie Resendiz MD at [facility] Eyelid 04/25/2019 [id number] / / Description:left whole scler a used for bilateral eyelids Procedures Procedure Name Priority Date/Time Associated Diagnosis Comments GLUCOSE - POINT OF CARE Routine 01/09/2019 2:37 PM CDT from Last 3 Months or Most Recently Relevant to Health Maintenance Results * GLUCOSE - POINT OF CARE (01/09/2019 2:37 PM CDT) Glucose WB/POC 94 70 - 115 mg/dL 01/10/2019 6:04 AM CDT [facility] Specimen Type Venous 01/10/2019 6:04 AM CDT [facility] Blood BLOOD SPECIMEN / Unknown 01/09/2019 2:37 PM CDT 01/10/2019 6:04 AM CDT Narrative [facility] - 01/10/2019 6:04 AM CDT COIN MACHINE COLLECTOR SUPERVISOR: CHARITO RONDON Stefanie Resendiz MD LAB - POINT OF CARE ORDER ARRON Final Result [address] [phone] from Last 3 Months or Most Recently Relevant to Health Maintenance Insurance [employer] AET[employer] Advance Directives * Full Code (Latest Code Status on File) Date Activated Date Inactivated Comments 01/09/2019 3:29 PM 01/09/2019 6:34 PM * Full Code Date Activated Date Inactivated Comments 09/23/2018 4:10 PM 09/26/2018 11:41 AM Care Teams Corporate Real Estate Manager Relationship Specialty Start Date End Date Pranav Cohen MD [address] [place] [address] PCP - General 05/23/18 Kay Martinez MD [address] [place] [address] Physician Ophthalmology 05/23/18 Aurelio Brown MD [address] [place] [address] Physician Interventional Cardiology 05/23/18
--- OUTSIDE RECORDS SUMMARY | 2025-02-08 13:17 | XMS_ITS | Encounter Summary ---
Author Organization [facility] Address [address] [facility] Attn: Epic Prelude ADT GARO MICHE[place] [address] Care Team Providers Care Machine Rebuilder Name Role Phone Pranav Cohen MD Primary Care Provider [phone] Encounter Details Date Type Department Care Team (Late st Contact Info) Description 03/29/1990 Outpatient Historical Elton Gill MD [address] 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
[2025-02-08 13:57] LABS: Influenza A QL RT-PCR Negative (Negative); Influenza B QL RT-PCR Negative (Negative); RSV RNA, RT-PCR Negative (Negative); SARS-CoV-2 RNA PCR Negative (Negative)
[2025-02-08 14:00] VITALS: BP 143/77; PULSE 91; PULSE 93; RESP 18; O2SAT 100
[2025-02-08 14:01] VITALS: BP 142/70; PULSE 93
[2025-02-08 14:03] VITALS: BP 134/72; PULSE 94
[2025-02-08 14:14] LABS: Add Urine Microscopic? YES; Appearance Urine Clear (Clear); Bilirubin Urine Negative (Negative); Blood Urine Negative (Negative); Color Urine Dark Yellow (Yellow); Glucose Urine UA Negative (Negative); Ketones Urine Trace mg/dL (Negative); Leukocyte Esterase Ur Negative LEU/UL (Negative); Nitrate Urine Negative (Negative); Protein Urine 1+ mg/dL (Negative); Specific Grav Ur > 1.045 (1.001-1.035); Urobilinogen Urine 0.2 mg/dL (<2.0)
[2025-02-08 14:40] LABS: RBC Urine 0-2 /hpf (0-2)
[2025-02-08 14:41] LABS: Bacteria Urine Trace /hpf; Squamous Epithelial Cell Urine Few /hpf (Few); WBC Urine 0-5 /hpf (0-3)
[2025-02-08] MEDS: POTASSIUM CHLORIDE 20 MEQ PACKET (FOR LIQUID) PO (14:53)
== END 2025-02-08 15:08 | disposition home or self-care (01) ==
PROVIDERS: Emergency Provider Emergency Medicine; PCP Family Medicine
DX: K52.9 Noninfective gastroenteritis and colitis, unspecified (principal); Z20.822 Contact with and (suspected) exposure to COVID-19; C34.90 Malignant neoplasm of unspecified part of unspecified bronchus or lung; J84.9 Interstitial pulmonary disease, unspecified; J96.11 Chronic respiratory failure with hypoxia; Z99.81 Dependence on supplemental oxygen; J43.9 Emphysema, unspecified; I10 Essential (primary) hypertension; I99.9 Unspecified disorder of circulatory system; E03.9 Hypothyroidism, unspecified; K21.9 Gastro-esophageal reflux disease without esophagitis; M32.9 Systemic lupus erythematosus, unspecified; M81.0 Age-related osteoporosis without current pathological fracture; M79.7 Fibromyalgia; M35.1 Other overlap syndromes; G62.9 Polyneuropathy, unspecified; G25.81 Restless legs syndrome; G47.33 Obstructive sleep apnea (adult) (pediatric); F32.A Depression, unspecified; Z86.718 Personal history of other venous thrombosis and embolism; Z96.1 Presence of intraocular lens; Z98.82 Breast implant status; Z87.891 Personal history of nicotine dependence; Z98.42 Cataract extraction status, left eye; Z98.41 Cataract extraction status, right eye; Z90.49 Acquired absence of other specified parts of digestive tract; K57.90 Diverticulosis of intestine, part unspecified, without perforation or abscess without bleeding; I51.7 Cardiomegaly; Z79.899 Other long term (current) drug therapy; Z79.82 Long term (current) use of aspirin; Z79.624 Long term (current) use of inhibitors of nucleotide synthesis
CPT/HCPCS: 36415; 71260; 74177; 80053; 81001; 83690; 85025; 87637; 96374; 99284; A9270; J2405; Q9967